=== PATIENT | female | born 1980 | race Caucasian/White ===

== ENCOUNTER 2021-12-21 21:33 | Observation (INO) ==
[2021-12-21] MEDS ORDERED: LORazepam 1 MG TAB SL STA (22:09)
[2021-12-21 23:32] LABS: Alanine Aminotransferase 31 U/L (7-52); Albumin Globulin Ratio 1.9 (0.9-2); Albumin Level 4.3 gm/dl (3.4-5.0); Alkaline Phosphatase 73 U/L (34-104); Anion Gap 8 (3-11); Aspartate Aminotransferase 61 U/L (13-39); BUN Creatinine Ratio 13.1 (10-20); Bilirubin,Total 0.6 mg/dl (0.2-1.0); Blood Urea Nitrogen 11 mg/dl (6-23); Calcium 8.1 mg/dl (8.5-10.1); Carbon Dioxide 26 mmol/L (21-32); Chloride 108 mmol/L (98-107); Est GFR (African American) 100.8 ml/min; Est GFR (Non-African American) 86.9 ml/min; Globulin 2.3 gm/dl (2.5-4.0); Glucose 93 mg/dl (70-99(Fasting)); Potassium 3.7 mmol/L (3.5-5.1); Sodium 142 mmol/L (136-145); Total Protein 6.6 gm/dl (6.0-8.3)
[2021-12-22] MEDS ORDERED: LORazepam 1 MG TAB PO STA (01:31)
[2021-12-22] MEDS ORDERED: ACETAMINOPHEN 500 MG TAB PO STA (01:31)
[2021-12-22] MEDS ORDERED: ONDANSETRON 4 MG OD TAB PO STA (01:58)
[2021-12-22 02:03] LABS: Amphetamines+Metham, Urine Neg (Neg); Barbiturates, Urine Neg (Neg); Benzodiazepine, Urine Neg (Neg); Cocaine, Urine Neg (Neg); MDMA (Ecstacy), Urine Neg (Neg); Methadone, Urine Neg (Neg); Opiate, Urine Neg (Neg); Phencyclidine, Urine Neg (Neg)
--- NOTE | 2021-12-22 03:54 | History & Physical Report ---
Date of Service December 22, 2021 Assessment & Plan (1) Alcohol intoxication: Plan: 41-year-old female with alcohol use disorder who presents with alcohol intoxication and passive situational suicidal ideation. - etoh level 365.4 and clinically intoxicated at arrival - mild AST elevation to 61 - follow clinically - AWSS active withdrawal IV ativan protocol; chosen given ntoxications in past and amount of etoh used - consult behavioral health - 1:1 sitter. suicide precautions. safe tray. see case management note (2) Alcohol use disorder: Plan: - recent relapse x 3 weeks, pint of vodka daily - check cbc, Mg, B12, and folate - replete thiamine and folate - continue counseling on cessation (3) COVID-19: Plan: - asymptomatic from a respiratory standpoint - saturating 97% on room air - covid isolation precautions Plan regular diet, safe tray SCDs med surg full code History of Present Illness Chief Complaint: alcohol intoxication, suicidal ideation Primary Care Provider: Daniel Driscoll MD 41-year-old female with alcohol use disorder who presents with alcohol intoxication and passive situational suicidal ideation. She incidentally tested positive for covid but states that she first tested positive on 12/02/21 She reports some brain fog and diarrhea since then but denies other symptoms. She denies shortness of breath. Patient presented as a 302 petition and warrant per case management note as she was found intoxicated when brought to a crisis center by her . Per case management note, she had been sober for several years, but restarted drinking a pint of vodka daily in the past 3 weeks. She denies current thoughts of harm. ED course: AWSS protocol. Patient has received 3mg total of PO Ativan. Allergies Allergy/AdvReac Type Severity Reaction Status Date / Time avocado Allergy Severe Swelling Verified 12/21/21 21:38 of Lip/Tongue/Throat codeine AdvReac Intermediate Gastrointestinal Verified 12/21/21 21:38 Upset Sulfa (Sulfonamide AdvReac Intermediate Gastrointestinal Verified 12/21/21 21:38 Antibiotics) Upset sulfamethoxazole AdvReac Intermediate Gastrointestinal Verified 12/21/21 21:38 Upset trimethoprim AdvReac Intermediate Gastrointestinal Verified 12/21/21 21:38 Upset kerri Allergy Unknown Uncoded 12/21/21 21:38 Home Medications Medication Instructions Recorded Confirmed Type albuterol sulfate 90 mcg/actuation 2 puff inhalation Q4H PRN 04/13/21 12/21/21 History aerosol inhaler Shortness Of Breath cetirizine 10 mg tablet (Zyrtec) 10 mg PO QAM 04/13/21 12/21/21 History dextroamphetamine-amphetamine 20 20 mg PO QID #120 tabs 12/20/21 12/21/21 Rx mg tablet (Adderall) pantoprazole 40 mg tablet,delayed 40 mg PO DAILY 12/21/21 12/21/21 History release Past Med/Surg History Medical History Alcoholism COVID-19 Family History Other Family hx of alcoholism Social History Smoking Status: Former smoker Tobacco Type: Cigarettes Hx Alcohol Use: Yes Alcohol type: wine and hard liquor Hx Substance Use: Yes Preferred Language: Lao marital status: marital status details: lives with fiance, 50/50 custody of kids with ex- Current Living Situation: Family current occupational status: employed Feels Safe at Home: No Review of Systems Review of Systems: All systems reviewed & are unremarkable except as noted in HPI & below Physical Exam Physical Exam: General: Grossly A&O. NAD. Cooperative. HEENT: Atraumatic, normocephalic. Pulm: CTAB. -wheezes, -rales, -rhonchi. No respiratory distress. Cardiac: RRR, -mrg. Integ: Warm, dry, intact. Msk: Moving all extremities. Results & Data Results & Data ([facility]) Vital Signs (Past 12 Hours) Vital Signs Temp Pulse Pulse Resp BP BP Pulse Ox 12/22/21 01:30 92 H 17 132/87 97 12/21/21 21:45 96 12/21/21 21:45 36.8 C 102 H 26 H 126/97 96 O2 Del Method 12/22/21 01:30 Room Air 12/21/21 21:45 Room Air 12/21/21 21:45 Room Air Laboratory Results Cardiac Enzymes 12/21/21 Range/Units 22:50 AST 61 H (13-39) U/L Comprehensive Metabolic Panel 12/21/21 Range/Units 22:50 Sodium 142 (136-145) mmol/L Potassium 3.7 (3.5-5.1) mmol/L Chloride 108 H (98-107) mmol/L Carbon Dioxide 26 (21-32) mmol/L BUN 11 (6-23) mg/dl Creatinine 0.84 (0.6-1.2) mg/dl Glucose 93 (70-99(Fasting)) mg/dl Calcium 8.1 L (8.5-10.1) mg/dl AST 61 H (13-39) U/L ALT 31 (7-52) U/L Alkaline Phosphatase 73 (34-104) U/L Total Protein 6.6 (6.0-8.3) gm/dl Albumin 4.3 (3.4-5.0) gm/dl Intake and Output 12/21/21 12/21/21 12/22/21 14:59 22:59 06:59 Other: Weight 98 kg Weight Measurement Method Built in [facility] Patient Weight 12/22/21 06:59 Weight 98 kg Code Status & VTE Plan Code Status full VTE Prophylaxis Plan VTE Prophylaxis will be ordered: Yes Supervising Physician Co-Signing Physician Notes Attending addendum: I have physically seen this patient, have supervised the medical residents activities, and agree with the H&P unless as otherwise noted. Assessment and Plan: Suicidal ideation/alcohol intoxication/alcohol use disorder- 302/admit to monitored bed AWSS protocol with IV Ativan One-to-one sitter for suicide precautions Consult psychiatry Alcohol level 365.4, AST 61 Patient reports drinking 1 pint of vodka daily over the past 3 weeks, after relapse occurred 3 weeks ago 500 mg p.o. daily Folic acid 1 mg p.o. daily Multivitamin 1 p.o. daily COVID-19 infection- Primarily as a positive screen, without symptomatology, therefore no active treatment needed Contact precautions Remaining orders and notations as noted Resident Activity Tracking Resident Involvement: Resident Care Provided Care Provided: Adult Hospital Medicine
--- NOTE | 2021-12-22 04:18 | Emergency Department Note ---
Impression & Plan Alcohol dependence, COVID-19, Passive suicidal ideations ED Provider Note CHIEF COMPLAINT: Alcohol intoxication, mental health evaluation HISTORY OF PRESENT ILLNESS: This 41-year-old female patient presents to the emergency department by EMS from the [facility] due to statements made of not wanting to "be alive." Patient has a long history of alcohol dependency and states she has been sober for 4 years up until 3 weeks ago. The patient is currently drinking 1 L of vodka a day. Patient apparently was drinking in the car on the way to the crisis center. She states she blacked out in the middle of praying with a counselor, she believes that is why the ambulance was called. Patient states she becomes very stressed when her children go with their father, she feels like an "empty fran" every week. Patient's fianc states that he and the patient's counselor feel she suffers from some undiagnosed mental health issue such as PTSD and/or bipolar disorder in addition to her alcoholism. They would like the patient to go to a dual treatment facility. REVIEW OF SYSTEMS: A review of systems was performed with positives and pertinent negatives listed in the history of present illness. 10 systems were reviewed and are otherwise negative. Patient is currently answering all questions however is intoxicated, therefore at this review of systems is limited. ALLERGIES: see below MEDICATIONS: see below PMH: see below SOCIAL HISTORY: see below DDx: Mood disorder, infection, hypoglycemia, electrolyte abnormalities, cardiac sources, intracerebral event, toxicologic, trauma, neurologic, as well as other pathologies. PHYSICAL EXAM: Vital signs reviewed. General: Intoxicated but otherwise well-appearing 41-year-old female, in no significant distress. HEENT: No scleral icterus, PERRLA, neck supple. Atraumatic. Cardiovascular: Regular rate and rhythm, no extra sounds. Pulmonary: Clear to auscultation bilaterally, normal work of breathing. Abdomen: Soft, nontender, nondistended, positive bowel sounds. Musculoskeletal: Atraumatic, no peripheral edema. Neurologic: Patient awake alert and oriented x 3, speech is clear Psych: Negative SI, negative HI. Patient reiterates that she sometimes would rather "not be alive" when her children are with her father. Skin: Warm, dry, no rash EMERGENCY DEPARTMENT COURSE/MDM: This patient was evaluated and appeared to be in no significant distress. Patient was clearly intoxicated on physical exam. Blood alcohol content is 365. Patient did request something for anxiety, was given 2 mg of oral Ativan. Patient then complained of pain in the finger and was given 1 g of Tylenol. She did also require 1 more mg of oral Ativan. The patient unfortunately tested COVID positive and is under a 302 warrant for the [facility]. Her fianc reiterates that she did test positive for COVID on December 02. This may be a residual COVID positive test and not an active infection. Patient is aware that this may make placement into a treatment facility very difficult. Patient will be evaluated by the hospitalist service for admission and further management. Patient and fianc are aware of this plan and agreed. DISPOSITION: Admission Past Med/Surg History Medical History (Updated 12/22/21 @ 16:13 by Veronica Vazquez MD) Alcoholism COVID-19 Family History Other Family hx of alcoholism Social History (Updated 12/22/21 @ 16:11 by Veronica Vazquez MD) Smoking Status: Former smoker Tobacco Type: Cigarettes Hx Alcohol Use: Yes Alcohol type: wine and hard liquor Hx Substance Use: Yes Preferred Language: Armenian marital status: marital status details: lives with fiance, 50/50 custody of kids with ex- Current Living Situation: Family current occupational status: employed Feels Safe at Home: No Allergies Allergies Allergy/AdvReac Type Severity Reaction Status Date / Time avocado Allergy Severe Swelling Verified 12/21/21 21:38 of Lip/Tongue/Throat codeine AdvReac Intermediate Gastrointestinal Verified 12/21/21 21:38 Upset Sulfa (Sulfonamide AdvReac Intermediate Gastrointestinal Verified 12/21/21 21:38 Antibiotics) Upset sulfamethoxazole AdvReac Intermediate Gastrointestinal Verified 12/21/21 21:38 Upset trimethoprim AdvReac Intermediate Gastrointestinal Verified 12/21/21 21:38 Upset kerri Allergy Unknown Uncoded 12/21/21 21:38 Home Meds Home Medications Medication Instructions Recorded Confirmed albuterol sulfate 90 mcg/actuation 2 puff inhalation Q4H PRN 04/13/21 12/21/21 aerosol inhaler Shortness Of Breath cetirizine 10 mg tablet (Zyrtec) 10 mg PO QAM 04/13/21 12/21/21 pantoprazole 40 mg tablet,delayed 40 mg PO DAILY 12/21/21 12/21/21 release Previous Rx's Medication Instructions Recorded dextroamphetamine-amphetamine 20 20 mg PO QID #120 tabs 12/20/21 mg tablet (Adderall) Results & Data (ED) Vital Signs Vital Signs - 24 hr 12/21/21 21:45 12/21/21 21:45 12/22/21 01:30 Temperature 36.8 C Temperature Source Oral Pulse Rate 102 H Pulse Rate [Apical] 92 H Pulse Rhythm [Apical] Regular Pulse Strength [Apical] Normal Respiratory Rate 26 H 17 Respiratory Effort / Characteristics Non-Labored Respiratory Depth Normal Respiratory Pattern Regular Blood Pressure 126/97 Blood Pressure [Right Arm] 132/87 Blood Pressure Mean 106 Blood Pressure Mean [Right Arm] 102 Blood Pressure Position [Right Arm] Lying Pulse Oximetry 96 96 97 Oxygen Delivery Method Room Air Room Air Room Air Sepsis Recent Fever Within 48 Hours No Sepsis New/Unexplained Change in Mental Status N/A Sepsis Action Taken by Nursing Physician Notified Home Medications Current Medication List: was personally reviewed by me Laboratory Data Attestation: I reviewed the patient's lab results. Result diagrams: 12/21/21 22:50 Lab Results 12/21/21 12/21/21 12/22/21 Range/Units 22:50 22:50 01:00 Sodium 142 (136-145) mmol/L Potassium 3.7 (3.5-5.1) mmol/L Chloride 108 H (98-107) mmol/L Carbon Dioxide 26 (21-32) mmol/L Anion Gap 8 (3-11) BUN 11 (6-23) mg/dl Creatinine 0.84 (0.6-1.2) mg/dl Est Cr Clr Drug Dosing Not Reportable Est GFR ( Amer) 100.8 ml/min Est GFR (Non-Af Amer) 86.9 ml/min BUN/Creatinine Ratio 13.1 (10-20) Glucose 93 (70-99(Fasting)) mg/dl Calcium 8.1 L (8.5-10.1) mg/dl Total Bilirubin 0.6 (0.2-1.0) mg/dl AST 61 H (13-39) U/L ALT 31 (7-52) U/L Alkaline Phosphatase 73 (34-104) U/L Total Protein 6.6 (6.0-8.3) gm/dl Albumin 4.3 (3.4-5.0) gm/dl Globulin 2.3 L (2.5-4.0) gm/dl Albumin/Globulin Ratio 1.9 (0.9-2) Urine Opiates Screen (Neg) Ur Methadone, Qual (Neg) Urine Barbiturates (Neg) Ur Phencyclidine (PCP) (Neg) U Amphetamin/Meth Scrn (Neg) MDMA (Ecstasy) Screen (Neg) U Benzodiazepines Scrn (Neg) Ur Cocaine Metabolite (Neg) U Marijuana (THC) Screen (Neg) Ethyl Alcohol mg/dL 365.4 H (<10.0) mg/dl SARS-CoV-2, RNA, NAAT POSITIVE A* (NEGATIVE) 12/22/21 Range/Units 01:26 Sodium (136-145) mmol/L Potassium (3.5-5.1) mmol/L Chloride (98-107) mmol/L Carbon Dioxide (21-32) mmol/L Anion Gap (3-11) BUN (6-23) mg/dl Creatinine (0.6-1.2) mg/dl Est Cr Clr Drug Dosing Est GFR ( Amer) ml/min Est GFR (Non-Af Amer) ml/min BUN/Creatinine Ratio (10-20) Glucose (70-99(Fasting)) mg/dl Calcium (8.5-10.1) mg/dl Total Bilirubin (0.2-1.0) mg/dl AST (13-39) U/L ALT (7-52) U/L Alkaline Phosphatase (34-104) U/L Total Protein (6.0-8.3) gm/dl Albumin (3.4-5.0) gm/dl Globulin (2.5-4.0) gm/dl Albumin/Globulin Ratio (0.9-2) Urine Opiates Screen Neg (Neg) Ur Methadone, Qual Neg (Neg) Urine Barbiturates Neg (Neg) Ur Phencyclidine (PCP) Neg (Neg) U Amphetamin/Meth Scrn Neg (Neg) MDMA (Ecstasy) Screen Neg (Neg) U Benzodiazepines Scrn Neg (Neg) Ur Cocaine Metabolite Neg (Neg) U Marijuana (THC) Screen Neg (Neg) Ethyl Alcohol mg/dL (<10.0) mg/dl SARS-CoV-2, RNA, NAAT (NEGATIVE) Administered Medications Folic Acid (Folic Acid 400 Mcg Tab) 400 mcg PO QAM [facility] Stop: 01/21/22 08:59 Last Admin: 12/22/21 08:58 Dose: 400 mcg Documented By: BLUE Thiamine HCl (Thiamine Hcl 100 Mg Tab) 100 mg PO QAM HAVEN Stop: 01/21/22 08:59 Last Admin: 12/22/21 08:58 Dose: 100 mg Documented By: BLUE Discontinued Medications Acetaminophen (Acetaminophen 500 Mg Tab) 1,000 mg PO NOW STA Stop: 12/22/21 01:32 Last Admin: 12/22/21 02:05 Dose: 1,000 mg Documented By: ROSALIA Lorazepam (Lorazepam 1 Mg Tab) 2 mg SL NOW STA Stop: 12/21/21 22:10 Last Admin: 12/21/21 22:26 Dose: 2 mg Documented By: SILVIA Lorazepam (Lorazepam 1 Mg Tab) 1 mg PO NOW STA Stop: 12/22/21 01:32 Last Admin: 12/22/21 02:06 Dose: 1 mg Documented By: ROSALIA Ondansetron HCl (Ondansetron 4 Mg Od Tab) 4 mg PO NOW STA Stop: 12/22/21 01:59 Last Admin: 12/22/21 02:06 Dose: 4 mg Documented By: ROSALIA Blood Pressure Blood Pressure Findings: Elevated blood pressure Blood Pressure Disposition: elevated BP felt to be situational Discharge Plan Visit Data Chief Complaint: Mental Health Evaluation Stated Complaint: ALCOHOL/EMOTIONAL/SCREAMING ED Provider: Veronica Vazquez Discharge Problem: Alcohol dependence, COVID-19, Passive suicidal ideations Patient Disposition: Admitted As Inpatient Discharge Instructions Interventions: ED Discharge Assessment Last Done: 12/22/21 07:59
[2021-12-22] MEDS ORDERED: LORazepam 2 MG in SYRINGE 1 ML IV PRN (07:59)
[2021-12-22] MEDS ORDERED: Ativan IV Alcohol Withdrawal--Active Protocol IV PRN (07:59)
[2021-12-22] MEDS ORDERED: LORazepam 3 MG in SYRINGE 1.5 ML IV PRN (07:59)
[2021-12-22] MEDS ORDERED: LORazepam 1 MG in SYRINGE 0.5 ML IV PRN (07:59)
[2021-12-22] MEDS ORDERED: THIAMINE HCL 100 MG TAB PO SCH (09:00)
[2021-12-22] MEDS ORDERED: FOLIC ACID 400 MCG TAB PO SCH (09:00)
--- NOTE | 2021-12-22 13:27 | Psychiatric Consultation ---
Date of Consultation December 22, 2021 Impression / Recommendations Impression 41 yo woman with recent relapse of alcohol use and increased anxiety, depression and statement of SI in context of her son's medical challenges, alcohol use and conflict with her fiancee. Now that she is sober she is consistently denying SI and desiring discharge to home with follow-up with outpatient dual diagnosis therapy. She feels safe at home and does not desire voluntary inpt psych tx and not felt to meet 302 criteria as no longer experiencing SI, no shmuel, no psychosis and no HI. Acute risk is low given improvement in mood, denial of SI, lack of access to lethal means, plan to avoid substance use, outpatient providers, strong reasons for living and engagement with safety planning. Counseled on ways to reduce acute and chronic risk including engaging with outpatient providers, using safet y plan if needed, and utilizing supports. Most significant modifiable risk factor of intoxication was adressed. (1) Alcohol use disorder: (2) Anxiety: (3) Adjustment disorder with mixed anxiety and depressed mood: Plan -safe for discharge from psychiatric standpoint -302 warrant dispositioned -can discontinue 1-on-1 and suicide precautions -will defer to outpt PCP re: prior to admission Adderall but Adderall dosing of QID is unusual, would consider if higher dose at BID dosing would be more appropriate in the future -option to try naltrexone in future, she will discuss this with her PCP if she finds she is struggling to avoid alcohol use -defer to hospitalist service re: need for any medications for potential alcohol withdrawal if she discharges -she has outpatient therapy -safety plan completed with psych liason and has resource booklet, agrees to return to ED should she feel unsafe/have SI again Risk Factors Assessment Male: No : Yes Do You Have Access To A Gun?: No Health Problems: No Mental Health Diagnoses: Yes Substance Use Disorders: Yes Previous Attempt: No Family History of Suicide: No Previous Psychiatric Hospitalization: No Hopelessness: No Smoker: No Protective Factors Assessment Responsible for Young Children: Yes Employed: Yes Stable Relationships: Yes Supportive Family: Yes Good Rapport with Provider: Yes Telehealth Telehealth Options: Telephone only For the duration of the visit, provider was performing the assessment from: The same facility as the patient After establishing a telemedicine visit, patient was: Patient was verified with two unique identifiers, Patient/authorized rep acknowledged consent and understanding and Gave permission to continue telehealth session Total Time Spent (minutes): 30 Psych History Identifying Data 41 yo woman with history of alcohol use disorder, anxiety admitted medically for alcohol withdrawal on 302 box a warrant for SI. Psychiatry consulted for risk assessment. Chief Complaint "I was drunk and said a bunch of stuff I didn't mean". History of Present Illness Today she is feeling "fine" but notes waking up in the ED has been "uncomfortable and anxious" because she's not home. She recalls everything from yesterday. She denies SI but notes that yesterday she was "angry, frustrated and intoxicated and I could have said a negative mantra about not wanting to be alive" but today notes "I love my life but sometimes I have too much stress I can't handle". She thinks she may have told her fiancee and [facility] "I want to but I really didn't I just wanted things to calm down" she notes "it was a figure of speech but I didn't mean it". She identifies many reasons for living including her "beautiful family", "two children who are amazing and they need their mom, I wouldn't leave them". She recently relapsed after a period of 4 years of sobriety in the context of stressors including son having congenital cataracts/neurology appointments/medical challenges, pending divorce, fiance dealing with tr auma/verbal conflict between them. She's in couples counseling with her fiance to deal with their different communication styles and this contributes to worsening anxiety and she then self-medicates with alcohol. She wants to take a break from alcohol and sees a counselor through [facility] and she knows of residential substance use treatment if she cannot manage it in the outpatient setting or she may try IOP substance use options. She notes "having been intoxicated I said and did a lot of things that I wouldn't normally". She plans to avoid alcohol use moving forward. She notes "if things at home don't go well and I start drinking again then I'll come back to the hospital". She is future- oriented about going home, showering, sending work emails and being with her kids and fiancee. She feels safe returning home. Notes she can argue with her fiancee and he can be verbally mean but wants to return home with him. Was provided with [facility] information. Past Psychiatric History Outpatient Services: counselor Previous Psych Admissions: n/a Do You Have Access To A Gun?: No History of Previous Suicide Attempt: No Past Medication Trials: was on delayed release Adderall XR in the past but had issues with insomnia so she states she previously was on TID Allergies Allergy/AdvReac Type Severity Reaction Status Date / Time avocado Allergy Severe Swelling Verified 12/21/21 21:38 of Lip/Tongue/Throat codeine AdvReac Intermediate Gastrointestinal Verified 12/21/21 21:38 Upset Sulfa (Sulfonamide AdvReac Intermediate Gastrointestinal Verified 12/21/21 21:38 Antibiotics) Upset sulfamethoxazole AdvReac Intermediate Gastrointestinal Verified 12/21/21 21:38 Upset trimethoprim AdvReac Intermediate Gastrointestinal Verified 12/21/21 21:38 Upset kerri Allergy Unknown Uncoded 12/21/21 21:38 Home Medications Medication Instructions Recorded Confirmed Type albuterol sulfate 90 mcg/actuation 2 puff inhalation Q4H PRN 04/13/21 12/21/21 History aerosol inhaler Shortness Of Breath cetirizine 10 mg tablet (Zyrtec) 10 mg PO QAM 04/13/21 12/21/21 History dextroamphetamine-amphetamine 20 20 mg PO QID #120 tabs 12/20/21 12/21/21 Rx mg tablet (Adderall) pantoprazole 40 mg tablet,delayed 40 mg PO DAILY 12/21/21 12/21/21 History release Family History no hx family by suicide Substance Abuse History alcohol use, relapsed after 4 yrs of sobriety prior to a few weeks ago Personal History Living Arrangements: Home Number Of Children: 2 Patient History Medical History Alcoholism COVID-19 Family History Other Family hx of alcoholism Social History Smoking Status: Former smoker Tobacco Type: Cigarettes Hx Alcohol Use: Yes Alcohol type: wine and hard liquor Hx Substance Use: Yes Preferred Language: Sinhala marital status: marital status details: lives with fiance, 50/50 custody of kids with ex- Current Living Situation: Family current occupational status: employed Feels Safe at Home: No Physical Exam Psychiatric: Orientation: alert and oriented x 3 Speech: normal rate/ rhythm/volume of speech Mood: + anxious mood; no depressed mood Thought Process: goal directed thought process and linear/logical thought process Thought Content: reality based without delusions Suicidal Thoughts: denies suicidal thoughts Homicidal Thoughts: denies homicidal thoughts Hallucinations: no auditory hallucinations and no visual hallucinations Cognition: recent memory grossly intact, remote memory grossly intact, attention grossly intact and language grossly intact Insight: + fair insight Judgement: + fair judgement Vital Signs (Past 24 Hours): Last Vital Signs Temp 36.8 C 12/21/21 21:45 Pulse 102 H 12/22/21 07:59 Resp 18 12/22/21 07:59 BP 137/90 12/22/21 07:59 Pulse Ox 98 12/22/21 07:59 O2 Del Method 12/22/21 07:59 Review of Systems All systems reviewed & are unremarkable except as noted in HPI & below Results & Data (PSY) Medications Administered Folic Acid (Folic Acid 400 Mcg Tab) [address] [facility] Stop: 01/21/22 08:59 Last Admin: 12/22/21 08:58 Dose: 400 mcg Documented By: BLUE Thiamine HCl (Thiamine Hcl 100 Mg Tab) 100 mg PO QAM HAVEN Stop: 01/21/22 08:59 Last Admin: 12/22/21 08:58 Dose: 100 mg Documented By: BLUE Coding Level of Care Code 66308 Inpt Consult Level 4 Diagnoses Alcohol use disorder Anxiety F41.9 Adjustment disorder with mixed anxiety and depressed mood F43.23 Time Spent (min) 45
--- NOTE | 2021-12-22 14:36 | Discharge Summary ---
Date of Service December 22, 2021 Admission HPI Per Admitting Provider 41-year-old female with alcohol use disorder who presents with alcohol intoxication and passive situational suicidal ideation. She incidentally tested positive for covid but states that she first tested positive on 12/02/21 She reports some brain fog and diarrhea since then but denies other symptoms. She denies shortness of breath. Patient presented as a 302 petition and warrant per case management note as she was found intoxicated when brought to a crisis center by her . Per case management note, she had been sober for several years, but restarted drinking a pint of vodka daily in the past 3 weeks. She denies current thoughts of harm. ED course: AWSS protocol. Patient has received 3mg total of PO Ativan. Principal Diagnosis 1. Alcohol intoxication-resolved 2. Alcohol abuse 3. COVID-19 + Discharge Exam GENERAL: 41 yo Well-developed, well-nourished WF. NAD. LUNGS: Clear to auscultation bilaterally. No W/R/R. CARDIOVASCULAR: Regular rate and rhythm. ABDOMEN: Soft, non-tender and non-distended. BS normoactive x 4 quad. EXTREMITIES: No edema. Non-tender. Peripheral pulses +2/4. NEUROLOGIC: A&O x3. PSYCHIATRIC: Cooperative. Appropriate mood and affect. SKIN: Warm, dry, intact. No rashes or lesions. Discharge Data Allergies Allergy/AdvReac Type Severity Reaction Status Date / Time avocado Allergy Severe Swelling Verified 12/21/21 21:38 of Lip/Tongue/Throat codeine AdvReac Intermediate Gastrointestinal Verified 12/21/21 21:38 Upset Sulfa (Sulfonamide AdvReac Intermediate Gastrointestinal Verified 12/21/21 21:38 Antibiotics) Upset sulfamethoxazole AdvReac Intermediate Gastrointestinal Verified 12/21/21 21:38 Upset trimethoprim AdvReac Intermediate Gastrointestinal Verified 12/21/21 21:38 Upset kerri Allergy Unknown Uncoded 12/21/21 21:38 Consultations 12/22/21 02:57 ED Decision to Admit Stat 12/22/21 04:41 Consult Psychiatry Routine Hospital Course (1) Alcohol intoxication: - Admitted, 302 hold - etoh level 365.4 and clinically intoxicated at arrival - mild AST elevation to 61 - AWSS active withdrawal IV ativan protocol; chosen given intoxications in past and amount of etoh used - consult behavioral health - 1:1 sitter. suicide precautions. safe tray. - Pt made a 302 d/t concern for suicidal ideations that were never verbalized by the patient but the fiance claimed she made "statements" but did not specify what statements (2) Alcohol use disorder: - Patient has been recovering after inpatient stay in 2018 - She has been participating in outpatient counseling regularly - Admits that she has relapsed over the past month or so when she began drinking vodka on a daily basis - She is engaged and admits that her fiance has also struggled with alcohol abuse and is on probation from domestic abuse against ex- - She admits to having several recent stressors including her 6-yr-old son who has medical problems and struggles with anxiety that appears untreated - She also admits that she has been in verbal altercations with her fiance but not physical which seems to also be a trigger - Ultimately would defer treatment for her anxiety/depressive symptoms to her pcp - Also would consider treatment (such as Vivtrol) to reduce alcohol cravings to her pcp - She verbalizes NO h/o withdrawal seizures (3) COVID-19: - Asymptomatic, tested positive 2 weeks ago - No treatment needed Plan Patient has been seen by liaison and spoke directly with psychiatry, Dr. Hyatt. 302 has been dropped. At this time, she is medically and hemodynamically stable for discharge home. She is not interested in inpatient rehab at this time. She recognizes that she has a problem and wants to get help as an outpatient as she is concerned if she goes inpatient she may lose her job. She is established with a counselor and plans to follow up closely. She also has close family support (sister and mother). Plan has been d/w Dr. Rothman who will also see patient prior to discharge. Total Time Total Time Spent Total Time Spent (In Minutes): >30 minutes Discharge Plan Discharge Items Patient Disposition: Home - Self-Care Reason For Visit: ETOH INTOXICATION,PASSIVE SI Discharge Diagnosis: alcohol intoxication Activity: Resume your previous activity Non-emergency contact: Primary Care Provider Call non-emergency contact if: you have any medication questions and your symptoms worsen Follow-up/Referrals: Daniel Driscoll MD [Primary Care Provider] - Diet: Regular Addtl Attending Provider Instructions: You were hospitalized under a 302 due to being intoxicated and concern for suicidal comments. As we discussed during our visit, it is strongly advised that you remove any and all forms of alcohol from your home. Follow up closely with your counselor. Try to identify all possible triggers for your drinking and discuss them with your counselor on the best coping mechanisms. It is recommended that you follow up wtih your family doctor within 1 week of discharge. You can discuss with him the possibility of being started on medications to help curb your cravings for alcohol. I would also strongly consider starting an anti-anxiety/anti-depression medication. This may help manage your anxiety and prevent you from turning to alcohol to self-medicate. But again, I will leave this to your primary care doctor. If you have any questions/concerns following your discharge that cannot be answered by your primary care provider, please call the nonemergency number listed on your discharge paperwork. In the event of a medical emergency, call 911. Pending Studies at Discharge: No Stand-Alone [facility]: [facility] Medications and DC Order Prescriptions: Continued dextroamphetamine-amphetamine [Adderall] 20 mg tablet 20 mg PO QID Qty: 120 0RF pantoprazole 40 mg tablet,delayed release (DR/EC) 40 mg PO DAILY cetirizine [Zyrtec] 10 mg Tablet 10 mg PO QAM albuterol sulfate 90 mcg/actuation HFA aerosol inhaler 2 puff INHALATION Q4H PRN (Reason: Shortness Of Breath) Discharge Orders: Discharge Order (Routine); Ordered 12/22/21 Ordered By: Patricia Tadeo Admission Data Admit Date/Time: 12/22/21 04:42 Attending Provider: Omid Rothman Admit Provider: Shahid Donnelly Primary Care Provider: Daniel Driscoll Other Providers: Heather Hyatt ; Amber Sylvester ; Didi Duffy ; Derick Cordova Other Interventions: Discharge Summary Assessment (RN) Last Done: 12/22/21 14:48 Supervising Physician Co-Signing Physician Notes I personally saw and examined the patient. I verified all anderson points and agree with Patricia Tadeo PA-C with the following exceptions and/or additions: 41 year old female admission for alcohol intoxication and possible suicidal ideation. Cleared by psychiatry morning of admission. No isolation precautions required for COVID-19 given initial positive result 2 weeks previously. Patient is alert and orientated. Some concern from her fiance about her needing to go to alcohol rehabilitation however patient not consenting for this and did not give consent to discuss further with her fiance. Medically stable for discharge at this time. Coding Level of Care Code D/C DAY MANAGEMENT >30 MINS Diagnoses Alcohol intoxication F10.929 Alcohol use disorder COVID-19 U07.1
--- NOTE | 2021-12-23 00:07 | Billing Data ---
Date of Service December 23, 2021 Coding Level of Care Code 81615 Initial Inpt Care Lvl 3
== END 2021-12-22 14:48 | disposition home or self-care (01) ==
LOC: ED 21:33 → SUATTDRO 12-22 04:42 → INTOOBSV 12-22 04:42 → EDINP 12-22 04:42

== ENCOUNTER 2023-12-05 00:55 | Inpatient (IN) ==
[2023-12-05 01:34] LABS: Basophils # (auto) 0.05 K/uL (0.00-0.20); Basophils % (auto) 0.6 %; Eosinophils # (auto) 0.14 K/uL (0.00-0.50); Eosinophils % (auto) 1.7 %; Hematocrit (blood only) 43.3 % (37.0-47.0); Immature Granulocytes # (auto) 0.02 K/uL (0.01-0.20); Immature Granulocytes % (auto) 0.2 %; Lymphocytes # (auto) 3.02 K/uL (1.20-3.40); Lymphocytes % (auto) 35.7 %; Mean Corpuscular Hemoglobin 32.4 pg (25.0-34.0); Mean Corpuscular Hgb Conc 34.6 g/dL (32.0-36.0); Mean Corpuscular Volume 93.5 fL (80.0-100.0); Mean Platelet Volume 9.9 fL (9.4-12.4); Monocytes # (auto) 0.41 K/uL (0.11-0.59); Monocytes % (auto) 4.8 %; Neutrophils # (auto) 4.82 K/uL (1.40-6.50); Platelet Count 284 K/uL (130-400); RDW Coefficient of Variation 12.5 % (11.5-14.5); RDW Standard Deviation 43.1 fL (36.4-46.3); Red Blood Count 4.63 M/uL (4.20-5.40); White Blood Count 8.46 K/ul (4.8-10.8)
[2023-12-05 01:50] LABS: Alanine Aminotransferase 97 U/L (7-52); Albumin Globulin Ratio 1.5 (0.9-2); Albumin Level 4.6 gm/dl (3.4-5.0); Alkaline Phosphatase 97 U/L (34-104); Anion Gap 13 (3-11); Aspartate Aminotransferase 201 U/L (13-39); BUN Creatinine Ratio 12.2 (10-20); Bilirubin,Total 0.6 mg/dl (0.2-1.0); Blood Urea Nitrogen 9 mg/dl (6-23); Calcium 8.9 mg/dl (8.6-10.3); Carbon Dioxide 22 mmol/L (21-32); Chloride 101 mmol/L (98-107); Est GFR (African American) 115.8 ml/min; Est GFR (Non-African American) 99.9 ml/min; Glucose 104 mg/dl (70-99(Fasting)); Sodium 136 mmol/L (136-145); Total Protein 7.6 gm/dl (6.0-8.3)
[2023-12-05 02:02] LABS: Acetaminophen < 3 ug/ml (10-30); Salicylate < 3.0 mg/dl (3.0-30)
[2023-12-05 02:05] LABS: Thyroid Stimulating Hormone 1.434 uIu/ml (0.300-4.500)
--- NOTE | 2023-12-05 02:18 | Emergency Department Note ---
Impression & Plan Suicidal ideation, Alcohol intoxication the case will be signed out to Dr. Alvarado at change of shift awaiting sobriety ED Provider Note NAME: JACQUELYN AMOS AGE: 43 SEX: Female INFORMANT: Patient ED PROVIDER(S): Sara Rousseau DO CHIEF COMPLAINT: Suicidal ideation and alcohol intoxication PLAN: Disposition: Case was signed out to Dr. Alvarado at change of shift awaiting sobriety MEDICAL DECISION MAKING: this is a 43-year-old female patient with a history of anxiety and alcohol abuse who presents to the emergency department after Having suicidal ideation. Patient describes drinking an excessive amount of alcohol on the nights when she does not have her children( shared custody situation.) Tonight, the patient became quite depressed and began have suicidal thoughts. Patient describes having similar thoughts approximately 1 month ago but did not act upon them. laboratory studies reveal no leukocytosis or anemia. She does have elevated transaminases with AST greater than ALT. Urine drug screen was negative. Urinalysis showed trace ketones. Alcohol level was 297. Patient was given a dose of sublingual Ativan to help with her anxiety. She was able to rest comfortably here in the ER. We are awaiting sobriety so that she can be formally evaluated by the ED psychiatric corrections caseworker. patient complained of nausea and persistent anxiety and was given a second dose of sublingual Ativan and a dose of Zofran. I will sign the case out to Dr. Alvarado change in shift awaiting sobriety. Care/management discussed with: ED psychiatric corrections caseworker Triage Nursing notes: reviewed and agree with them. Vital Signs: reviewed and remarkable for hypertension and tachycardia Additional History obtained from: the patient's ex fianc who is at the bedside Chronic Medical/Social Conditions affecting care: alcohol abuse; depression and anxiety Differential Diagnosis: alcohol intoxication, mood disorder, suicidal ideation HPI: 43 year old Female arrives for evaluation of suicidal ideation. patient is drink excessive alcohol over the past 2 days. she began to feel more depressed tonight and started to have some suicidal thoughts. She asked Gina what would be the best way to end your life and Gina responded by urging her to call the suicide hotline. Patient did reach out to crisis. They were concerned for the patient's safety and directed her here for evaluation with a 302 petition. PAST MEDICAL HISTORY: See Below, PAST SURGICAL HISTORY: See Below, SOCIAL HISTORY: Patient lives with her children, she is unemployed, she denies any drug use, she does describe heavy alcohol use at times HOME MEDICATIONS: see list ALLERGIES: see list VITALS: See Below PHYSICAL EXAMINATION: HEENT: Head - normocephalic and atraumatic. Pupils are equal, round, and reactive to light. Extraocular eye muscles are intact, and sclera are anicteric. Nose - moist nasal mucosa without discharge. Mouth - moist buccal mucosa. Oropharynx is nonerythematous and there is no tonsillar exudate or edema noted. Neck: Supple; no Cervical lymphadenopathy or thyromegaly Heart: tachycardic rate and regular rhythm. There is a normal S1 and S2 with no murmurs, clicks, or gallops appreciated. Lungs: Clear to auscultation bilaterally with no wheezes, rales, or rhonchi. Abdomen: Soft, completely nontender, nondistended, with good bowel sounds. There are no palpable pulsatile masses or hepatosplenomegaly. There is no guarding, rigidity, or rebound noted. Extremities: No evidence of cyanosis, clubbing, or edema. There are easily palpable peripheral pulses. Skin: warm and dry with good turgor and no rashes. Psych: The patient is tearful and anxious and does admit to suicidal thoughts and attempts to come up with different plans. emergency department course: The patient was evaluated in room A-5 with the psychiatric corrections caseworker. Laboratory studies were drawn and the patient was noted to have a significantly elevated alcohol level. She would not be sober until approximately 9 AM. The patient's ex fianc who is at the bedside voices significant concern for the patient's safety and felt that she was acting further on her thoughts regardless of her state of intoxication. Patient complained of significant anxiety and was given a dose of sublingual Ativan which only gave her minimal relief of her symptoms. She rested for some time but then complained of nausea and worsening anxiety. She was given a dose of sublingual Zofran and a second dose of sublingual Ativan. This seemed to help more with her symptoms. Vitals are stable and she is awaiting evaluation by the ED psychiatric corrections caseworker when she is sober. Past Med/Surg History Problem List (Updated 12/05/23 @ 04:35 by Sara Rousseau DO) Alcohol intoxication (Acute) Suicidal ideation (Acute) Sprain of left foot (Acute) Strain of left foot Constipation Dysphagia Anxiety Mood disorder Tachycardia Viral URI Situational stress Depression Right foot injury Head injury due to trauma Palpitation Attention deficit disorder Scoliosis Fatty liver ADHD (attention deficit hyperactivity disorder), inattentive type Hemochromatosis H63D homozygous Asthma GERD (gastroesophageal reflux disease) Adjustment disorder with mixed anxiety and depressed mood Anxiety Passive suicidal ideations (Acute) Alcohol dependence (Chronic) Alcohol use disorder (Acute) Medical History History of COVID-19 2021- no hosp; resolved History of tachycardia related to anxiety Mood disorder Hemochromatosis H63D homozygous Esophagitis Gastritis Fatty liver Dysphagia reason for egd GERD (gastroesophageal reflux disease) Seasonal allergies Asthma (~2019) well controlled; prn inhaler use ADHD Scoliosis Hx of cold sores History of alcoholism on and off since age 19, states no longer drinking daily, has cut back to drinking ~3-4 times per week Depression with anxiety H/O thyroiditis Surgical History S/P wisdom tooth extraction History of removal of cyst left rib cage, local numbing Family History Mother Family history of hemochromatosis Uterus prolapse Arthritis Father Throat cancer Alcohol abuse Myocardial infarction Grandfather (Maternal) Lung cancer Other Family hx of alcoholism Denies family history of Ovarian cancer Prostate cancer Diabetes Breast cancer Colorectal cancer Social History Smoking Status: Never smoker Tobacco Type: Cigarettes Age Started Using Tobacco: 23; Age Quit Using Tobacco: 29; Cigarettes Per Day: 1/2 PPD; Second Hand Exposure: No; Do You Dip or Chew Tobacco: No; Hx Alcohol Use: Yes Alcohol type: wine and hard liquor Hx Substance Use: No Preferred Language: Czech Communication Ability: Effective Visual Impairment: Limited Hearing Ability: Normal Certified Massage Therapist Required: No Beliefs That Will Affect Care: None marital status: marital status details: lives with fiance, 50/50 custody of kids with ex- Current Living Situation: Family current occupational status: employed How many Children do You have: 2 Feels Safe at Home: Yes Childhood Exposure to Second-Hand Smoke: Yes Diet: regular caffeine: Yes Dental Care, Regularly: Yes Physical Activity Frequency: Daily Seatbelt Use: always Sunscreen Use: Yes Do you think of yourself as: straight/heterosexual Assistive Devices: Glasses Allergies Allergies Allergy/AdvReac Type Severity Reaction Status Date / Time avocado Allergy Severe Swelling Verified 10/30/23 13:34 of Lip/Tongue/Throat codeine AdvReac Intermediate Gastrointestinal Verified 10/30/23 13:34 Upset Sulfa (Sulfonamide AdvReac Intermediate Gastrointestinal Verified 10/30/23 13:34 Antibiotics) Upset sulfamethoxazole AdvReac Intermediate Gastrointestinal Verified 10/30/23 13:34 Upset trimethoprim AdvReac Intermediate Gastrointestinal Verified 10/30/23 13:34 Upset kerri Allergy Unknown Uncoded 10/30/23 13:34 Home Meds Home Medications Medication Instructions Recorded Confirmed cetirizine 10 mg tablet (Zyrtec) 10 mg PO QAM 04/13/21 12/05/23 bupropion HCl 100 mg tablet,12 hr 100 mg PO BID 07/30/23 12/05/23 sustained-release folic acid 1 mg tablet 1 mg PO QAM 07/30/23 12/05/23 fexofenadine 60 mg tablet 60 mg PO HS PRN allergies 09/29/23 12/05/23 valacyclovir 1 gram tablet 1,000 mg PO TID Cold Sores 12/05/23 12/05/23 Previous Rx's Medication Instructions Recorded famotidine 40 mg tablet (Pepcid) 40 mg PO BID heartburn #180 tabs 08/18/23 pantoprazole 40 mg tablet,delayed 40 mg PO BID #180 tabs 08/19/23 release dextroamphetamine-amphetamine 20 20 mg PO QID #120 tabs 11/10/23 mg tablet (Adderall) Results & Data (ED) Vital Signs Vital Signs - 24 hr 12/05/23 00:58 12/05/23 05:13 Temperature 36.6 C Temperature Source Temporal Artery Scan Pulse Rate 104 H Pulse Rate [Finger] 92 H Pulse Rhythm [Finger] Regular Pulse Strength [Finger] Normal Respiratory Rate 18 18 Respiratory Effort / Characteristics Non-Labored Spontaneous Non-Labored Spontaneous Respiratory Depth Normal Normal Respiratory Pattern Regular Regular Blood Pressure 143/98 H Blood Pressure [Right Arm] 122/76 Blood Pressure Mean 113 Blood Pressure Mean [Right Arm] 91 Blood Pressure Position Sitting Blood Pressure Position [Right Arm] Lying Pulse Oximetry 96 99 Oxygen Delivery Method Room Air Room Air Sepsis Recent Fever Within 48 Hours No Sepsis New/Unexplained Change in Mental Status N/A Sepsis Action Taken by Nursing No Action Required Laboratory Data 12/05/23 01:10 12/05/23 01:10 Lab Results 12/05/23 12/05/23 Range/Units 01:10 02:26 WBC 8.46 (4.8-10.8) K/ul RBC 4.63 (4.20-5.40) M/uL Hgb 15.0 (12.0-16.0) g/dl Hct 43.3 (37.0-47.0) % MCV 93.5 (80.0-100.0) fL MCH 32.4 (25.0-34.0) pg MCHC 34.6 (32.0-36.0) g/dL RDW Std Deviation 43.1 (36.4-46.3) fL RDW Coeff of Krystina 12.5 (11.5-14.5) % Plt Count 284 (130-400) K/uL MPV 9.9 (9.4-12.4) fL Immature Gran % (Auto) 0.2 % Neut % (Auto) 57.0 % Lymph % (Auto) 35.7 % [place] % (Auto) 4.8 % Eos % (Auto) 1.7 % Baso % (Auto) 0.6 % Neut # (Auto) 4.82 (1.40-6.50) K/uL Lymph # (Auto) 3.02 (1.20-3.40) K/uL [place] # (Auto) 0.41 (0.11-0.59) K/uL Eos # (Auto) 0.14 (0.00-0.50) K/uL Baso # (Auto) 0.05 (0.00-0.20) K/uL Immature Gran # (Auto) 0.02 (0.01-0.20) K/uL Sodium 136 (136-145) mmol/L Potassium 4.0 (3.5-5.1) mmol/L Chloride 101 (98-107) mmol/L Carbon Dioxide 22 (21-32) mmol/L Anion Gap 13 H (3-11) BUN 9 (6-23) mg/dl Creatinine 0.74 (0.6-1.2) mg/dl Est Cr Clr Drug Dosing Not Reportable Est GFR ( Amer) 115.8 ml/min Est GFR (Non-Af Amer) 99.9 ml/min BUN/Creatinine Ratio 12.2 (10-20) Glucose 104 H (70-99(Fasting)) mg/dl Calcium 8.9 (8.6-10.3) mg/dl Total Bilirubin 0.6 (0.2-1.0) mg/dl AST 201 H (13-39) U/L ALT 97 H (7-52) U/L Alkaline Phosphatase 97 (34-104) U/L Total Protein 7.6 (6.0-8.3) gm/dl Albumin 4.6 (3.4-5.0) gm/dl Globulin 3.0 (2.5-4.0) gm/dl Albumin/Globulin Ratio 1.5 (0.9-2) TSH 1.434 (0.300-4.500) uIu/ml Urine Color Yellow Urine Appearance Clear (Clear) Urine pH 5.0 (4.5-7.5) Ur Specific [place] 1.011 (1.000-1.030) Urine Protein Negative (Negative) Urine Glucose (UA) Negative (Negative) Urine Ketones Trace H (Negative) Urine Blood Negative (Negative) Urine Nitrite Negative (Negative) Urine Bilirubin Negative (Negative) Urine Urobilinogen Negative (Negative) Ur Leukocyte Esterase Negative (Negative) Salicylates < 3.0 L (3.0-30) mg/dl Urine Opiates Screen Neg (Neg) Ur Methadone, Qual Neg (Neg) Urine Fentanyl Screen Neg (Neg) Acetaminophen < 3 L (10-30) ug/ml Urine Barbiturates Neg (Neg) Ur Phencyclidine (PCP) Neg (Neg) U Amphetamin/Meth Scrn Neg (Neg) MDMA (Ecstasy) Screen Neg (Neg) U Benzodiazepines Scrn Neg (Neg) Ur Cocaine Metabolite Neg (Neg) U Marijuana (THC) Screen Neg (Neg) Ethyl Alcohol mg/dL 297.4 H (<10.0) mg/dl SARS-CoV-2, RNA, NAAT NEGATIVE (NEGATIVE) Administered Medications Discontinued Medications Lorazepam (Lorazepam 1 Mg Tab) 1 mg SL NOW STA Stop: 12/05/23 02:39 Last Admin: 12/05/23 02:54 Dose: 1 mg Documented By: Lorazepam (Lorazepam 1 Mg Tab) 1 mg SL NOW STA Stop: 12/05/23 04:50 Last Admin: 12/05/23 05:01 Dose: 1 mg Documented By: KVNG Ondansetron HCl (Ondansetron 4 Mg Od Tab) 4 mg PO NOW STA Stop: 12/05/23 04:50 Last Admin: 12/05/23 05:01 Dose: 4 mg Documented By: KVNG Discharge Plan Visit Data Chief Complaint: Mental Health Evaluation Stated Complaint: SUIDICAL THOUGHTS ED Provider: Sara Rousseau Discharge Problem: Suicidal ideation, Alcohol intoxication Forms Stand Alone Forms: [facility], Suicide Prevention Resources Prescriptions Prescriptions: No Action famotidine [Pepcid] 40 mg tablet 40 mg PO BID Qty: 180 3RF pantoprazole 40 mg tablet,delayed release (DR/EC) 40 mg PO BID Qty: 180 3RF dextroamphetamine-amphetamine [Adderall] 20 mg tablet 20 mg PO QID Qty: 120 0RF Rx Instructions: administer doses at least 4-6 hours apart cetirizine [Zyrtec] 10 mg Tablet 10 mg PO QAM fexofenadine 60 mg Tablet 60 mg PO HS PRN (Reason: allergies) valacyclovir 1 gram tablet 1,000 mg PO TID Rx Instructions: 1 tablet 3 times a day until the symptoms are gone bupropion HCl 100 mg tablet sustained-release 12 hr 100 mg PO BID folic acid 1 mg tablet 1 mg PO QAM Referrals Referrals: Daniel Driscoll MD [Primary Care Provider] - Discharge Problem: Alcohol intoxication Qualifiers: Complication of substance-induced condition: with unspecified complication Q ualified Code(s): F10.929 - Alcohol use, unspecified with intoxication, unspecified
[2023-12-05] MEDS: LORazepam 1 MG TAB SL STA ×2 (02:54→05:01)
[2023-12-05 02:55] LABS: Appearance Urine Clear (Clear); Bilirubin Urine Negative (Negative); Blood Urine Negative (Negative); Color Urine Yellow; Glucose Urine UA Negative (Negative); Ketones Urine Trace (Negative); Leukocyte Esterase Urine Negative (Negative); Nitrite Urine Negative (Negative); Protein Urine Negative (Negative); Specific Gravity Urine 1.011 (1.000-1.030); Urobilinogen Urine Negative (Negative)
[2023-12-05 03:08] LABS: Amphetamines+Metham, Urine Neg (Neg); Barbiturates, Urine Neg (Neg); Benzodiazepine, Urine Neg (Neg); Cocaine, Urine Neg (Neg); Fentanyl, Urine Neg (Neg); MDMA (Ecstacy), Urine Neg (Neg); Marijuana, Urine Neg (Neg); Methadone, Urine Neg (Neg); Opiate, Urine Neg (Neg); Phencyclidine, Urine Neg (Neg)
[2023-12-05] MEDS: ONDANSETRON 4 MG OD TAB PO STA (05:01)
--- NOTE | 2023-12-05 08:44 | Emergency Department Note ---
ED Visit Note Received this patient in signout from Dr. Rousseau. See her note for additional details. Patient came in overnight after concerning suicidal statements. Was intoxicated to some degree. Resting here till the morning for more formal evaluation by case management. Collateral history was obtained from other friends or family as well according to records and report. Blood work here without other significant abnormalities. Significant safety concerns exist and a 302 warrant has been issued. Patient seen by 3 S. here. Patient with significant anxiety and was improving with some oral Ativan here. More for anxiety and agitation overnight she had some Ativan. While she is not had severe DT/hallucinations/seizure in the past with withdrawal does relate to us that she drinks a box of wine daily. Given this discussed with the medical team admission for further care and treatment and close monitoring of alcohol withdrawal. Hospitalist team contacted. Can continue work on mental health and anxiety issues as well. .
[2023-12-05] MEDS: LORazepam 1 MG TAB PO STA (10:02)
--- NOTE | 2023-12-05 13:06 | History & Physical Report ---
Date of Service December 05, 2023 Assessment & Plan (1) Alcohol withdrawal: Plan: Patient reports has been drinking 1 box of wine per day (approximately 4 bottles) x 2 weeks Last drink the evening of 12/03 Medical alcohol level 297 on arrival Patient reports she was not drinking for 7-10 days prior to this current binge Secondary to life stressors/ex-/coparenting No history of alcohol withdrawal, DTs, visual/auditory hallucinations, tremors, or alcohol withdrawal seizures However, given tachycardia and elevated transaminases, will place on AWSS protocol Seizure precautions Banana bag x 1 Valium 5 mg IV x 1 AWSS protocol at risk protocol with Ativan as needed Supplemental thiamine and folate daily Continuous telemetry monitoring A.m. CBC, CMP (2) Suicidal ideation: Plan: Patient expressed suicidal ideations to her fianc the evening of 12/03 prior to coming in She denies SI, thoughts of self-harm, or thoughts of harming others at time of admission No prior suicide attempts, but she does endorse passive suicidal ideations One-to-one observation for now Amenable to seeing psych while inpatient Psychiatry consult appreciated (3) ADHD (attention deficit hyperactivity disorder), inattentive type: Plan: Continue Adderall for now Recommend discussion of weaning down, as patient reportedly takes 80-200mg daily, and this could be contributing to her anxiety She reports that she starts binging alcohol whenever she runs out of Adderall (4) Anxiety and depression: Plan: Continue bupropion (5) Alcohol intoxication: (6) Alcohol use disorder: Plan Disposition: Admit to MedSurg telemetry Full code Regular diet, safe tray One-to-one observation until cleared by psychiatry VTE PPx: Low risk, encourage ambulation History of Present Illness Chief Complaint: Mental health evaluation Primary Care Provider: Daniel Driscoll MD Candi is a 43yo female with PMH of alcohol use disorder with dependence, passive suicidal ideations, anxiety, depression, adjustment disorder, GERD, asthma, and ADHD. She presented on 12/04 after calling a crisis number for suicidal ideations. Her fianc (Talat) is at the bedside and provides additional history. Patient reports that she goes through binges of alcohol whenever she runs out of Adderall. She is on a large dose of Adderall (80 mg/day, but sometimes needs to take up to 200 mg/day), and when she runs out, she starts drinking. She reports her current binge has been around 2 weeks. She drinks 1 box of wine per day, but reports she does not always finish the box of wine. No hard alcohol. Prior to this 2-week binge, she reports she was sober for approximately 7 to 10 days. She denies history of alcohol withdrawal, DTs, or seizures related to alcohol withdrawal. She has stopped drinking in the past without withdrawing; reports she sleeps through it, then feels better. Current life stressors include her ex-, who she does not get along with, and who she is currently co-parenting with. She denies suicidal ideations, thoughts of self-harm, or thoughts of harming others at this time. Her last drink was last night on 12/04. No prior hospitalizations for psychiatry, but she has come to the hospital in the past for depression and alcohol use. Patient denies recreational drug use. She reports she has not been eating well since she started her current binge. Patient is amenable to cutting back drinking and seeing psychiatry while inpatient. She characterizes her thought as passive suicidal ideations; for instance, last night while she was drunk she said to her fianc, "say goodbye to my kids for me", and while driving into the hospital's morning she looked at the grace and said "that would be a way to go". While she does not have plans or prior suicide attempts, she does report progression of her depressive symptoms. She denies co-ingestion of other medications or taking pills for the purpose of harming herself. Patient is tachycardic at 110 bpm at time of admission; vitals otherwise stable. ED course: Ativan 1 mg SL x 2 Ativan 1 mg p.o. x 1 Zofran 4 mg p.o. ROS: Patient endorses intermittent headache, intermittent chest palpitations (which patient attributes to anxiety and history of PVCs), diarrhea, and nausea and vomiting yesterday. Patient denies fever, chills, night sweats, visual/auditory hallucinations, tremors, dizziness, lightheadedness, chest pain, SOB, pleuritic CP, cough, abdominal pain, or numbness or tingling in arms or legs. Patient does have some concerns with confidentiality during her hospital stay. She requests a code word for knowledge of her hospital stay, and that her information requires a "break the glass" flag; discussed with registration. Allergies Allergy/AdvReac Type Severity Reaction Status Date / Time avocado Allergy Severe Swelling Verified 10/30/23 13:34 of Lip/Tongue/Throat codeine AdvReac Intermediate Gastrointestinal Verified 10/30/23 13:34 Upset Sulfa (Sulfonamide AdvReac Intermediate Gastrointestinal Verified 10/30/23 13:34 Antibiotics) Upset sulfamethoxazole AdvReac Intermediate Gastrointestinal Verified 10/30/23 13:34 Upset trimethoprim AdvReac Intermediate Gastrointestinal Verified 10/30/23 13:34 Upset kerri Allergy Unknown Uncoded 10/30/23 13:34 Home Medications Medication Instructions Recorded Confirmed Type cetirizine 10 mg tablet (Zyrtec) 10 mg PO QAM 04/13/21 12/05/23 History bupropion HCl 100 mg tablet,12 hr 100 mg PO BID 07/30/23 12/05/23 History sustained-release folic acid 1 mg tablet 1 mg PO QAM 07/30/23 12/05/23 History famotidine 40 mg tablet (Pepcid) 40 mg PO BID heartburn #180 tabs 08/18/23 12/05/23 Rx pantoprazole 40 mg tablet,delayed 40 mg PO BID #180 tabs 08/19/23 12/05/23 Rx release fexofenadine 60 mg tablet 60 mg PO HS PRN allergies 09/29/23 12/05/23 History dextroamphetamine-amphetamine 20 20 mg PO QID #120 tabs 11/10/23 12/05/23 Rx mg tablet (Adderall) valacyclovir 1 gram tablet 1,000 mg PO TID Cold Sores 12/05/23 12/05/23 History Past Med/Surg History Problem List (Updated 12/05/23 @ 13:19 by Isaías Casanova PA-C) Alcohol withdrawal Anxiety and depression Alcohol intoxication (Acute) Suicidal ideation (Acute) Sprain of left foot (Acute) Strain of left foot Constipation Dysphagia Anxiety Mood disorder Tachycardia Viral URI Situational stress Depression Right foot injury Head injury due to trauma Palpitation Attention deficit disorder Scoliosis Fatty liver ADHD (attention deficit hyperactivity disorder), inattentive type Hemochromatosis H63D homozygous Asthma GERD (gastroesophageal reflux disease) Adjustment disorder with mixed anxiety and depressed mood Anxiety Passive suicidal ideations (Acute) Alcohol dependence (Chronic) Alcohol use disorder (Acute) Medical History History of COVID-19 2021- no hosp; resolved History of tachycardia related to anxiety Mood disorder Hemochromatosis H63D homozygous Esophagitis Gastritis Fatty liver Dysphagia reason for egd GERD (gastroesophageal reflux disease) Seasonal allergies Asthma (~2019) well controlled; prn inhaler use ADHD Scoliosis Hx of cold sores History of alcoholism on and off since age 19, states no longer drinking daily, has cut back to drinking ~3-4 times per week Depression with anxiety H/O thyroiditis Surgical History S/P wisdom tooth extraction History of removal of cyst left rib cage, local numbing Family History Mother Family history of hemochromatosis Uterus prolapse Arthritis Father Throat cancer Alcohol abuse Myocardial infarction Grandfather (Maternal) Lung cancer Other Family hx of alcoholism Denies family history of Ovarian cancer Prostate cancer Diabetes Breast cancer Colorectal cancer Social History Smoking Status: Never smoker Tobacco Type: Cigarettes Age Started Using Tobacco: 23; Age Quit Using Tobacco: 29; Cigarettes Per Day: 1/2 PPD; Second Hand Exposure: No; Do You Dip or Chew Tobacco: No; Hx Alcohol Use: Yes Alcohol type: wine and hard liquor Hx Substance Use: No Preferred Language: [place] Communication Ability: Effective Visual Impairment: Limited Hearing Ability: Normal 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 Beliefs That Will Affect Care: None marital status: marital status details: lives with fiance, 50/50 custody of kids with ex- Current Living Situation: Family current occupational status: employed How many Children do You have: 2 Feels Safe at Home: Yes Childhood Exposure to Second-Hand Smoke: Yes Diet: regular caffeine: Yes Dental Care, Regularly: Yes Physical Activity Frequency: Daily Seatbelt Use: always Sunscreen Use: Yes Do you think of yourself as: straight/heterosexual Gender Identity: Female Assistive Devices: Glasses Review of Systems Review of Systems: See HPI above Physical Exam Physical Exam: General: no acute distress; non-toxic appearing; well-nourished; cooperative; SpO2 96% on RA HEENT: normocephalic, atraumatic; no scleral icterus; PERRLA w/ EOMs intact; vision and hearing grossly intact Neck: supple; no lymphadenopathy; trachea midline Skin: Non-diaphoretic; warm, dry without signs of tenting; no cyanosis; no rashes, bruising, lesions, or erythema noted CV: chest wall NTP; RR, tachycardic around 110 bpm; S1/S2 normal; no murmurs/rubs/gallops; pulses intact and symmetric at radial, DP, and PT Lungs: no acute respiratory distress; symmetrical chest wall expansion; clear breath sounds across all lung zaragoza w/o adventitious sounds; no wheezing ABD: Soft, NTP; BS present; no rebound/guarding; no distention MSK: no tics or fasciculations; no tremors; no edema noted in the LEs b/l, nonerythematous Neuro: A&Ox3; normal mood and affect; fluent speech; no focal deficits; sensation grossly intact and symmetric in the LEs b/l Results & Data Results & Data Vital Signs (Past 12 Hours) Vital Signs Temp Pulse Resp BP Pulse Ox O2 Del Method 12/05/23 11:33 110 H 18 132/86 96 Room Air 12/05/23 08:45 36.8 C 114 H 18 122/82 95 Room Air 12/05/23 05:13 92 H 18 122/76 99 Room Air Laboratory Results Abnormal lab results 12/05/23 12/05/23 Range/Units 01:10 02:26 Anion Gap 13 H (3-11) Glucose 104 H (70-99(Fasting)) mg/dl AST 201 H (13-39) U/L ALT 97 H (7-52) U/L Urine Ketones Trace H (Negative) Salicylates < 3.0 L (3.0-30) mg/dl Acetaminophen < 3 L (10-30) ug/ml Ethyl Alcohol mg/dL 297.4 H (<10.0) mg/dl ECG Additional Comments: ECG ordered, pending Code Status & VTE Plan Code Status Full code (discussed with both patient and patient's fianc at bedside) Supervising Physician Co-Signing Physician Notes Patient seen and examined, chart reviewed, case discussed with Isaías Casanova PA-C and I agree with the assessment and plan as above except as otherwise noted Labs and images reviewed 41-year-old female who was reportedly admitted on 302 with expression of suicidal ideation in the setting of alcohol intoxication. Patient reports that she had a difficult therapy session with her ex- which precipitated an acute episode of drinking. She reports she will drink intermittently, generally drinks a black box of wine which is approximately 4 bottles of wine at night. She has been drinking for about the last 2 weeks and had an increased amount of alcohol last night due to the after mentioned argument. She reports prior to 2 weeks ago she had gone for more than a week without any alcohol at all and no withdrawal symptoms. She had self tapered once previously after being seen in the hospital for concerns of alcohol withdrawal risk, but she self tapered her alcohol at that time and did not experience any actual symptoms of withdrawal. Was seen by psych liaison this morning was noted to be tachycardic and diaphoretic. Does have a history of anxiety/depression on bupropion. Takes ADHD for Adderall as noted and notes when she runs out she starts drinking as n oted. Was recommended for medical admission for alcohol withdrawal risk. As she has been drinking up to 4 bottles of wine for 2 weeks, has a transaminitis, and has had concern for alcohol withdrawal in the past and this is reasonable. Suspect that as she went 2 weeks without alcohol recently her overall risk of severe withdrawal is low to moderate. Will trend LFTs for suspected mild alcohol hepatitis and placed on WSS with a frontloaded dose of Valium due to tachycardia and diaphoresis. Urine tox is negative. Patient does express she is concerned about staying in the hospital for a prolonged period of time due to the situation at home involving her kids and "I do anything for my children ", she is future oriented. She endorses passive SI, denies current active SI and notes that her suicidal expressions were impulsive in the setting of the argument with her ex- and with alcohol intake. Agree with above Patient does express that there have been concerns for her ex- obtaining privileged health information in the past. She is clear that she does not want health information shared with him under any circumstances. Did set up a code word, and additional confidentiality/break last added to chart. PG Care Time/CCT Total # of Minutes Spent Total Time Spent with Patient: Total time spent is greater than 50% in coordination of care (as documented) at patient's floor/unit and/or counseling patient: [place] [address] INT INP/OBS CARE MIN Patient Type Established History Comprehensive Exam Comprehensive Medical Decision Making High Complexity Diagnoses Alcohol withdrawal F10.939 Suicidal ideation R45.851 ADHD (attention deficit hyperactivity disorder), inattentive type F90.0 Anxiety and depression F41.9; F32.A Alcohol intoxication F10.929 Complication of substance-induced condition: with unspecified complication Alcohol use disorder F10.90 (5) Alcohol intoxication Complication of substance-induced condition: with unspecified complication Qualified Code(s): F10.929 - Alcohol use, unspecified with intoxication, unspecified
[2023-12-05] MEDS: diazePAM 5 MG/ML 10ML VIAL IV STA (14:38)
[2023-12-05] MEDS: MULTI-VITAMIN INFUSION 10 ML, THIAMINE HCL 100 MG, FOLIC ACID 1 MG in SODIUM CHLORIDE 0... IV ONE (14:38)
--- NOTE | 2023-12-05 14:58 | Psychiatric Consultation ---
Date of Consultation December 05, 2023 Impression / Recommendations Impression Patient is a , domiciled with 2 children 43-year-old white female history of alcohol dependence, prescription stimulant abuse, GERD who presents with suicidal ideation in the context of alcohol intoxication. Patient found to have elevated LFTs and admitted to medicine. Was brought in on a 302 petition. Psychiatry consulted for evaluation. Patient presents a history of alcohol dependence, stimulant abuse. Given family history of alcohol dependence and chronic low mood, feelings of worthlessness, self-esteem issues there is concern for underlying depression. Sub threshold symptoms for PTSD and may benefit from outpatient trauma counseling. Unlikely bupropion is effective and will recommend discontinuation. Antidepressants were discussed with the patient including SSRIs; side effects and adverse effects were discussed and she is agreeable. Given questionable adherence and long half-life of fluoxetine it would be a preferable choice in the patient to target symptoms of depression. She would benefit from a referral to an outpatient psychiatrist given stimulant use for ADHD and antidepressant. Does not present acute safety concerns; she denies suicidal ideation, is future oriented, has intact reality testing wanting to live for her children. She appears precontemplative about quitting alcohol; was offerred rehab and declined. Was explained medical risks of continued alcohol intake. She does not meet criteria for inpatient psychiatry admission at this time and can be managed on an outpatient basis. Overall, I spent a total of 60 minutes with this case including review of chart records, nursing report, review of lab work, direct evaluation of the patient at bedside, counseling the patient, discussion of the patient with the hospitalist provider, discussion with the psychiatric liaison during clinical rounds, and documentation in the electronic health record. (1) Alcohol use disorder, moderate, dependence: (2) Stimulant abuse: (3) MDD (major depressive disorder), recurrent episode, moderate: (4) Marital conflict involving divorce: Plan Recommendations: Discontinue bupropion Start fluoxetine 10 mg daily, if tolerated can increase to 20mg daily tomorrow Hold home Adderall (amphetamine salts) Case management to establish psychiatry follow-up Psych History Identifying Data Patient is a , domiciled with 2 children 43-year-old white female history of alcohol dependence, prescription stimulant abuse, GERD who presents with suicidal ideation in the context of alcohol intoxication. Patient found to have elevated LFTs and admitted to medicine. Was brought in on a 302 petition. Psychiatry consulted for evaluation. Chief Complaint "Didn't feel like living" "Now feel better" History of Present Illness Patient complains of difficulty coparenting with her ex-. They share 2 children together and he will not listen. Says that he she had assumed call with him on Friday and then the kids went to be with him. She then drank heavily after that. She sent messages to him asking him to take care of the children and her cat. She said at that time she felt like life was not worth living. Reports her suicidal ideation has resolved and she currently has no active intent or plan. She reports future intentions to not drink and have a more stable situation. She reports drinking for the last 2 weeks and had a few days of sobriety before that. She denies current withdrawal shakes or tremors. Reports drinking from 1 bottle of wine daily to 4 bottles of wine. Started drinking after her son was born to deal with the depression. Reports escalating stressors of divorce have pushed her to drink more. Her main driver license technician for drinking is to escape negative emotions such as anger and resentment and to cope with stress. Reports past rehab at [facility] for 30 days and did not find it helpful. She relapsed soon after and got a DUI. This was October 2022. At that point she was placed on probation and in the month of April she was completely sober and had an ankle monitor that sensed alcohol so she could not drink. During that time she was sleeping well, eating well, keeping her house clean, had fair energy and concentration. Reports still feeling low at that time. Reports past history of sobriety for 2.5 years and at that time still felt a low mood and complained of worthlessness and poor self-esteem. She reports having increased hypervigilance and often looks over her back. And has nightmares related to her ex- and divorce; this wakes her up from sleep. She denies having flashbacks or nightmares related to events from childhood. Father was a [place] and had PTSD. He was a "alcoholic". Mother and maternal grandmother had anxiety and were treated with medication. Reports in childhood was abandoned by her father and raised by stepfather. She denies any physical sexual or emotional abuse. Social history: Patient has a 12-year-old daughter and an 8-year-old son. and feels is manipulating the proceedings. She recently moved to a new home and this has been stressful; during the move she broke her foot and had a boot on. Has not seen a psychiatrist in the past. Is currently on Adderall 80 mg a day prescribed by PCP. Reports at times she overuses this and ends up not having enough few days at the end of the month and this further worsens her mood. He is interested in long-acting formulations. Reports being on bupropion 100 mg sustained release for the past 2 months and is minimally adherent; appears to be ineffective. Past Psychiatric History History of Previous Suicide Attempt: No Allergies Allergy/AdvReac Type Severity Reaction Status Date / Time avocado Allergy Severe Swelling Verified 10/30/23 13:34 of Lip/Tongue/Throat codeine AdvReac Intermediate Gastrointestinal Verified 10/30/23 13:34 Upset Sulfa (Sulfonamide AdvReac Intermediate Gastrointestinal Verified 10/30/23 13:34 Antibiotics) Upset sulfamethoxazole AdvReac Intermediate Gastrointestinal Verified 10/30/23 13:34 Upset trimethoprim AdvReac Intermediate Gastrointestinal Verified 10/30/23 13:34 Upset kerri Allergy Unknown Uncoded 10/30/23 13:34 Home Medications Medication Instructions Recorded Confirmed Type cetirizine 10 mg tablet (Zyrtec) 10 mg PO QAM 04/13/21 12/05/23 History bupropion HCl 100 mg tablet,12 hr 100 mg PO BID 07/30/23 12/05/23 History sustained-release folic acid 1 mg tablet 1 mg PO QAM 07/30/23 12/05/23 History famotidine 40 mg tablet (Pepcid) 40 mg PO BID heartburn #180 tabs 08/18/23 12/05/23 Rx pantoprazole 40 mg tablet,delayed 40 mg PO BID #180 tabs 08/19/23 12/05/23 Rx release fexofenadine 60 mg tablet 60 mg PO HS PRN allergies 09/29/23 12/05/23 History dextroamphetamine-amphetamine 20 20 mg PO QID #120 tabs 11/10/23 12/05/23 Rx mg tablet (Adderall) valacyclovir 1 gram tablet 1,000 mg PO TID Cold Sores 12/05/23 12/05/23 History Patient History Medical History History of COVID-19 2021- no hosp; resolved History of tachycardia related to anxiety Mood disorder Hemochromatosis H63D homozygous Esophagitis Gastritis Fatty liver Dysphagia reason for egd GERD (gastroesophageal reflux disease) Seasonal allergies Asthma (~2019) well controlled; prn inhaler use ADHD Scoliosis Hx of cold sores History of alcoholism on and off since age 19, states no longer drinking daily, has cut back to drinking ~3-4 times per week Depression with anxiety H/O thyroiditis Surgical History S/P wisdom tooth extraction History of removal of cyst left rib cage, local numbing Family History Mother Family history of hemochromatosis Uterus prolapse Arthritis Father Throat cancer Alcohol abuse Myocardial infarction Grandfather (Maternal) Lung cancer Other Family hx of alcoholism Denies family history of Ovarian cancer Prostate cancer Diabetes Breast cancer Colorectal cancer Social History Smoking Status: Never smoker Tobacco Type: Cigarettes Age Started Using Tobacco: 23; Age Quit Using Tobacco: 29; Cigarettes Per Day: 1/2 PPD; Second Hand Exposure: No; Do You Dip or Chew Tobacco: No; Hx Alcohol Use: Yes Alcohol type: wine and hard liquor Hx Substance Use: No Preferred Language: Hebrew Communication Ability: Effective Visual Impairment: Limited Hearing Ability: Normal 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 Feeder Required: No Beliefs That Will Affect Care: None marital status: marital status details: lives with fiance, 50/50 custody of kids with ex- Current Living Situation: Family current occupational status: employed How many Children do You have: 2 Feels Safe at Home: Yes Childhood Exposure to Second-Hand Smoke: Yes Diet: regular caffeine: Yes Dental Care, Regularly: Yes Physical Activity Frequency: Daily Seatbelt Use: always Sunscreen Use: Yes Do you think of yourself as: straight/heterosexual Gender Identity: Female Assistive Devices: Glasses Physical Exam Mental Examination: Appearance: Disheveled Eye Contact: Maintains Eye Contact Motor Behavior: Unremarkable Speech: Normal Mood: Anxious and Irritable Affect: Constricted Thought Process: Intact and Linear Thought Content: Intact Hallucinations: None Insight: Poor (to limited) Judgement: Fair Vital Signs (Past 24 Hours): Last Vital Signs Temp 36.8 C 12/05/23 08:45 Pulse 110 H 12/05/23 11:33 Resp 18 12/05/23 11:33 BP 132/86 12/05/23 11:33 Pulse Ox 96 12/05/23 11:33 O2 Del Method Room Air 12/05/23 11:33 Results & Data (PSY) Medications Administered Multivitamins 10 ml/ Thiamine HCl 100 mg/ Folic Acid 1 mg/Sodium Chloride 1,011.2 mls @ 500 mls/hr IV .Q2H2M ONE Stop: 12/05/23 15:31 Last Admin: 12/05/23 14:38 Dose: 500 mls/hr Documented By: AM Coding [place] [address] IN/OBS CONSULT LVL 4,60M Patient Type Established History Comprehensive Exam Comprehensive Medical Decision Making Moderate Complexity Diagnoses Alcohol use disorder, moderate, dependence F10.20 Stimulant abuse F15.10 MDD (major depressive disorder), recurrent episode, moderate F33.1 Marital conflict involving divorce Z63.5
[2023-12-05] MEDS: DEXTROAMPHETAMINE/AMPHETAMINE IR 20 MG TAB PO SCH (15:41)
[2023-12-05] MEDS: FLUoxetine HCL 10 MG CAP PO STA (16:07)
--- OUTSIDE RECORDS SUMMARY | 2023-12-05 20:04 | External Medical Summary | Summary of Care ---
Author Name Unknown Organization [facility] Address [address] [place] [address] Phone [phone] Care Team Providers Care Filer And Sander Name Role Phone Daniel Driscoll MD Primary Care Provide r Reason for Visit * Reason Onset Date Comments Advice 12/04/2023 Encounter Details Date Type Department Care Team (Late st Contact Info) Description 12/04/2023 Telephone Gynecology/Obstetrics [facility] [address] [place] [address] Services, Scheduling [address] [place] [address] Advice Allergies Active Allergy Reactions Criticality Noted Date Comments Avocado Edema face/lips/tongue High 06/04/2017 Sulfa Antibiotics 03/17/2006 Hives Kiwi Extract Edema face/lips/tongue High 06/04/2017 Morphine And Codeine Nausea/vomiting 07/22/2007 documented as of this encounter (statuses as of 12/04/2023) Medications Medication Sig Dispensed Refills Start Date End Date Status fexofenadine (GABRIEL ALLERGY) 180 MG Tablet Take 180 mg by mouth daily. Active Triamcinolone Acetonide (NASACORT ALLERGY 24HR) 55 MCG/ACT AERO Administer 2 Sprays into each nostril daily. 06/30/2017 Active EPINEPHrine, anaphylaxis, (EPI-PEN) 0.3 MG/0.3ML SOAJ injection For a severe reaction: Place orange end against the outer thigh, press firmly, hold in place for 10 seconds and go to the Emergency room. 2 Device 3 06/30/2017 Active omeprazole (PRILOSEC) 20 MG CPDR Take 20 mg by mouth daily. Active ketotifen fumarate (ZADITOR) 0.025 % ophthalmic solution Instill 1 Drop into both eyes 2 times a day as needed (allergic eye symptoms). 5 mL 5 08/18/2017 Active Albuterol Sulfate (ALBUTEROL HFA) 108 (90 BASE) MCG/ACT inhaler Inhale 2 Puffs by mouth every 6 hours as needed. Active ZyrTEC Allergy 10 MG Oral Capsule (Cetirizine HCl) Take 10 mg by mouth daily. Active documented as of this encounter (statuses as of 12/04/2023) Active Problems Problem Noted Date Diagnosed Date Pollen-food allergy 08/19/2017 Overview: fresh avocado, kiwi/strawberry - mouth and throat itching and swelling GERD (gastroesophageal reflux disease) 8 Allergic conjunctivitis, bilateral 06/30/2017 Presence of intrauterine contraceptive device (I UD) 10/05/2015 Medication exposure during first trimester of pr egnancy 11/29/2014 ADHD (attention deficit hype ractivity disorder), inattentive type 11/29/2014 Mental disorder in 11/29/2014 First trimester screening 11/29/2014 TERMINATED MEDICATION USAGE AGREEMENT 02/11/2012 Overview: NO controlled substances or ADD meds for this patient please. Violated med use agreement w/ UDS + for marijuana. ADVANCE DIRECTIVE INFORMATION 12/17/2010 Overview: No, Advance Directive brochure offered , patient declined. Personal history of non-drug allergy 06/03/2008 Other allergic rhinitis 03/17/2006 Overview: ICD-10 update of inactive term Attention deficit disorder without hyperactivity Overview: Was on adderall - med use agreement violated on 02/11/12 w/ UDS + for marijuana - do not prescribe controlled substances for this patient. documented as of this encounter (statuses as of 12/04/2023) Resolved Problems Problem Noted Date Diagnosed Date Resolved Date Encounter for supervision of other normal 11/04/2014 07/06/2015 Overview: Taking Adderal. Per MFM: She is doing well on her medication and would like to continue this during . We discussed that Adderall is a category C medication and has been associated with growth problems. See genetic counselor's note. We recommend anatomy screening at 18-20 weeks and serial growth ultrasounds every 4-6 weeks after 24 weeks. These can be done at her primary OB per patient preference. MSAFP after 15 weeks-negative 04/19/2015 Tdap Vaccine administered per clinic protocol. Pt given VIS(vaccine information sheet) Eva Barlow RN Patient received flu vaccine. 04/19/2015 Eva Barlow RN ICD-10 update of inactive term Abnormal maternal glucose to lerance, complicating , childbirth, or the puerperium, unspecified as to episode of care 03/29/2011 02/11/2012 Overview: Glucola elevated, 3hr GTT ordered. Supervision of other high-risk 12/19/2010 02/11/2012 Overview: 03/12/2011--Needs urine culture done at next visit. Order futured. Jennifer Dumont LPN ICD-10 update of inactive term ADDERALL AND OCP EXPOSURE 12/19/2010 Attention deficit disorder w ithout hyperactivity 12/17/2010 02/12/2012 Overview: Duplicate entry h/o PYELONEPHRITIS NOS 11/20/201002/11 Overview: Urine cx each trimester 11/20: >100,000 colonies lactobacillus; repeat urine cx at next visit - 12/19 = neg 03/28: UTI. Rx macrobid. Needs LALA. Obtained 04/23/2011 Sara JAUREGUI Normal , first 11/20/201006/06 Overview: Desires FTS NO KNOWN PROBLEMS 03/17/2006 03/17/2006 MEDICATION USE AGREEMENT 10/2011 Overview: Terminated 02/11/12 based on UDS results - see other entry for details Prior history for this entry: For ADD meds Pt taking Adderall 5mg twice daily at NOB visit-pt has been tapering off this medication through her PCP. Desires M consult 12/17: the patient should have an ultrasound every 4-6 weeks to assess growth if medication is continued documented as of this encounter (statuses as of 12/04/2023) Immunizations Name Administration Dates Next Due Seasonal Influenza, PF, 6 M & above, IM , (FluLaval or Fluzone) 02/21/2021,01/06/2020,02/23/2019, 0 17 Seasonal Influenza, Quadriva lent, No Preserve, IM 04/19/2015 TDAP (age 10 and older)(Boostrix) 04/19/2015 TDAP, Age 7 and older, IM (Adacel) 06/19/2011 documented as of this encounter Social History Tobacco Use Types Packs/Day Years Used Date Smoking Tobacco: Never Cigarettes - 02/26/2005 Smokeless Tobacco: Never Alcohol Use Standard Drinks/Week Comments Yes 0 (1 standard drink = 0.6 oz pure alcohol) occasional wine-none since [employer] Answer Date Recorded Do you have trouble paying y our heating, water, or electric bill? (Adult - for ages 18 years and over) Not on file 09/23/2023 Is your family able to pay t he heat, water, or electric bill? (Household - for ages 0-17 years) Not on file 09/23/2023 Does your family have access to good internet? (Household - for ages 0-17 years) Not on file 09/23/2023 Social Connections Answer Date Recorded How often do you feel lonely or isolated from those around you? (Adult - for ages 18 years and over) Not on file 09/23/2023 Sex and Gender Information Value Date Recorded Sex Assigned at Not on file Gender Identity Not on file Sexual Orientation Not on file Job Start Date Occupation Industry Not on file Not on file Not on file documented as of this encounter Miscellaneous Notes * Telephone Encounter - Sana Galindo OSA - 12/04/2023 6:28 PM EDT Pt needing std testing Stated she is having a discharge that is not normal Please assist [phone] Thank you documented in this encounter Plan of Treatment Health Maintenance Due Date Last Done Comments Lipid Panel 1981 HPV/Co-Test 2011 Depression Screening 07/26/2016 07/27/2015 Hepatitis B Vaccine (2 of 3 - 19+ 3-dose series) 02/09/2018 01/12/2018 Mammogram 2021 COVID-19 Vaccine (1 - 2022-24 season) 2022 Influenza Vaccine (FLU shot) (#1) 2023 02/21/2021, 01/06/2020, 02/23/2019, Additional history exists Cervical Cancer Screening 04/25/2024 Pap Smear 04/25/2024 04/25/2021, 04/0 07/2017, 07/22/2014, Additional history exists IUD 7-Year 06/04/2024 06/04/2017 DTap/Tdap Vaccines (3 - Td or Tdap) 04/19/2025 04/19/2015, 06/19/2011 HPV (Gardasil) Vaccine Aged Out No lo nger eligible based on patient's age to complete this topic MENINGOCOCCAL (MENACTRA/MENVEO) Aged Out No longer eligible based on patient's age to complete this topic Pneumococcal Vaccine: Pediatrics (0 to 5 Years) and At-Risk Patients (6 to 64 Years) Aged Out No longer eligible based on patient's age to complete this topic documented as of this encounter Medical Devices Not on filedocumented as of this encounter Care Teams Filer And Sander Relationship Specialty Start Date End Date Daniel Driscoll MD PCP - General Family Medicine 11/02/15 documented as of this encounter
[2023-12-05] MEDS ORDERED: buPROPion SR 100 MG TABCR PO SCH (21:00)
[2023-12-05] MEDS: FAMOTIDINE 40 MG TABLET PO SCH (21:22)
[2023-12-05] MEDS: PANTOprazole 40 MG TAB PO SCH (21:22)
[2023-12-06] MEDS: LORazepam 2 MG/1 ML VIAL IV PRN (00:40)
[2023-12-06 06:26] LABS: Hematocrit (blood only) 38.4 % (37.0-47.0); Hemoglobin 12.9 g/dl (12.0-16.0); Mean Corpuscular Hemoglobin 31.9 pg (25.0-34.0); Mean Corpuscular Hgb Conc 33.6 g/dL (32.0-36.0); Mean Platelet Volume 10.5 fL (9.4-12.4); Platelet Count 202 K/uL (130-400); RDW Coefficient of Variation 11.9 % (11.5-14.5); RDW Standard Deviation 41.8 fL (36.4-46.3); Red Blood Count 4.04 M/uL (4.20-5.40); White Blood Count 5.34 K/ul (4.8-10.8)
[2023-12-06 06:44] LABS: Albumin Globulin Ratio 1.7 (0.9-2); Albumin Level 3.7 gm/dl (3.4-5.0); BUN Creatinine Ratio 12.3 (10-20); Bilirubin,Total 1.3 mg/dl (0.2-1.0); Creatinine Clr Calc Pharmacy 124.2 ml/min; Est GFR (African American) 117.7 ml/min; Est GFR (Non-African American) 101.6 ml/min; Globulin 2.2 gm/dl (2.5-4.0); Magnesium 1.8 mg/dl (1.7-2.4); Potassium 3.8 mmol/L (3.5-5.1); Total Protein 5.9 gm/dl (6.0-8.3)
[2023-12-06] MEDS: CETIRIZINE HCL 10 MG TABLET PO SCH (08:31)
[2023-12-06] MEDS: FLUoxetine HCL 10 MG CAP PO SCH (08:31)
[2023-12-06] MEDS: THIAMINE HCL 100 MG TAB PO SCH ×2 (08:31→20:02)
[2023-12-06] MEDS: FOLIC ACID 1 MG TAB PO SCH (08:31)
[2023-12-06] MEDS ORDERED: FOLIC ACID 1 MG TAB PO SCH (09:00)
[2023-12-06] MEDS: KETOROLAC 30 MG/ML VIAL IV ONE (09:45)
[2023-12-06 09:52] LABS: Pregnancy Test, Urine Negative (Negative)
--- NOTE | 2023-12-06 17:39 | Hospitalist Progress Note ---
Date of Service December 06, 2023 Assessment & Plan (1) Alcohol use disorder: Plan: Etoh use -- 1 box of wine/day (approximately 4 bottles) x 2 weeks Last drink the evening of 12/03 Etoh level 297 on arrival Denies any etoh for 7-10 days prior to this current binge No evidence of acute withdrawal during my visit today and no other symptoms witnessed by staff [facility] prn is available if AWSS scoring calls for such Cont folic acid supplementation Increase thiamine to 200mg BID She is interested in outpatient counseling but not inpatient rehab We did briefly discuss naltrexone (2) Stimulant abuse: Plan: Takes Adderall 20mg QID However, she admits that her monthly supply often runs out after 2-3 weeks Psychiatry here at [facility] is advising cessation of Adderall moving forward Per records was on Adderall XR in the past Was also on wellbutrin recently - I assume this was for depression as well as her ADHD Her ADHD would be best managed by psychiatry as an outpatient in light of her misuse of her current short-acting Adderall, etc I have contacted the [facility] Liaison to help set her up with outpatient psych services (3) Suicidal ideation: Plan: Patient expressed suicidal ideation to her fianc the evening of 12/03 Psychiatry consult completed 12/04 At this time she is denying suicidal or homicidal ideation 1:1 observation has been d/c Safe tray to be d/c Per psychiatry she is not suicidal and does not need inpatient psychiatric treatment (4) ADHD (attention deficit hyperactivity disorder), inattentive type: Plan: as above (5) Anxiety and depression: Plan: Wellbutrin stopped per psychiatry Starting prozac Outpatient counseling & outpatient psych services will be needed (6) Sprain of left foot: Plan: seen by ortho earlier this month walking boot as needed ice as needed (7) Abnormal CT of the abdomen: Plan: 07/2023 CT a/p showed a prominent gastric lymph node 3 month f/u CT was advised by radiology will d/w patient cont PPI twice daily for chronic GERD Plan significant other updated at bedside Admission and Anticipated Discharge Date Admission Date: December 05, 2023 Subjective patient sleeping upon arrival but easily awakens pt's significant other was at bedside patient reports numerous psychosocial stressors over the last few weeks-months including but not limited to a recurrent L ankle injury requiring a walking boot, problems with her ex-, stressors at home with her children (who both have ADHD), troubles with maintaining a normal stimulant schedule (takes adderall QID, but often runs out early in the month), 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 all of these things have been additive for her and it often leads to problem/excessive drinking at this time she is not interested in inpatient rehab for her alcohol abuse or going to a dual diagnosis program she is interested in psychiatric services as an outpatient to manage her anti- depressants, ADHD meds, etc. she has been following with an intensive psychotherapist for counseling she reports significant fatigue and poor sleep at home denies any abd pain, chest pain, dyspnea, headache her significant other is very supportive and lends collateral history during the visit she is hoping to get a shower and have her diet advanced Review of Systems Review of Systems: psych - denies suicidal/homicidal ideation cv - no cp pulm - no MACIAS GI - no N/V Physical Exam Physical Exam: gen - looks tired, but NAD, pleasant mouth - MMM neck - no JVD heart - RRR, s1 s2, no murmur lungs - CTA b/l abd - soft NT ND BS+ ext - no edema, pulses 2+ b/l psych - a/o x 3, restricted affect, normal thought processes, no psychosis neuro - no tremor or signs of etoh withdrawal Results & Data Results & Data Vital Signs (Past 12 Hours) Vital Signs Temp Pulse Pulse Resp BP Pulse Ox O2 Del Method 12/06/23 15:12 36.8 C 77 16 114/74 94 Room Air 12/06/23 13:00 98 H 12/06/23 11:23 36.5 C 61 16 112/69 92 Room Air 12/06/23 08:00 Room Air 12/06/23 07:30 36.4 C L 86 16 126/85 95 Room Air 12/06/23 06:46 77 Laboratory Results Abnormal lab results 12/06/23 Range/Units 05:41 RBC 4.04 L (4.20-5.40) M/uL Calcium 8.0 L (8.6-10.3) mg/dl Total Bilirubin 1.3 H D (0.2-1.0) mg/dl AST 111 H (13-39) U/L ALT 65 H (7-52) U/L Total Protein 5.9 L D (6.0-8.3) gm/dl Globulin 2.2 L (2.5-4.0) gm/dl PG Care Time/CCT Total # of Minutes Spent Total Time Spent with Patient: Total time spent is greater than 50% in coordination of care (as documented) at patient's floor/unit and/or counseling patient: Coding Level of Care Code 77383 SUB INP/OBS CARE 3/50MIN Diagnoses Alcohol use disorder F10.90 Stimulant abuse F15.10 Suicidal ideation R45.851 ADHD (attention deficit hyperactivity disorder), inattentive type F90.0 Anxiety and depression F41.9; F32.A Sprain of left foot S93.602A Encounter type: initial encounter Abnormal CT of the abdomen R93.5 (6) Sprain of left foot Encounter type: initial encounter Qualified Code(s): S93.602A - Unspecified sprain of left foot, initial encounter
[2023-12-07] MEDS: LOPERAMIDE HCL 2 MG CAP PO STA (03:42)
[2023-12-07] MEDS: LORazepam 1 MG TAB PO PRN (03:42)
[2023-12-07 07:22] VITALS: TEMP 98.4
[2023-12-07 07:59] LABS: Albumin Globulin Ratio 1.5 (0.9-2); Albumin Level 3.6 gm/dl (3.4-5.0); BUN Creatinine Ratio 12.2 (10-20); Bilirubin,Total 0.9 mg/dl (0.2-1.0); Calcium 8.2 mg/dl (8.6-10.3); Creatinine Clr Calc Pharmacy 123.5 ml/min; Est GFR (African American) 115.8 ml/min; Est GFR (Non-African American) 99.9 ml/min; Globulin 2.4 gm/dl (2.5-4.0); Potassium 3.6 mmol/L (3.5-5.1)
[2023-12-07] MEDS: FLUoxetine HCL 20 MG CAP PO SCH (08:17)
[2023-12-07 08:18] LABS: Ferritin 448.5 ng/ml (8-388)
[2023-12-07] MEDS: OPTIRAY 320 100ml IV ONE (11:07)
--- NOTE | 2023-12-07 11:26 | CT Scan Report ---
CT OF THE ABDOMEN AND PELVIS WITH CONTRAST CLINICAL HISTORY: enlarged gastric lymph nodes on prior CT COMPARISON STUDY: CT of the abdomen and pelvis July 23, 2023. TECHNIQUE: Following IV administration of 94 mL of Optiray, axial images of the abdomen and pelvis we re obtained from the lung bases to the proximal femurs. Images were reviewed in the axial, sagittal, and coronal planes. IV contrast was administered without complication. Automated exposure control wa s utilized for the study. A dose lowering technique was utilized adhering to the principles of ALARA . CT DOSE: 1485.96 mGy.cm FINDINGS: Visualized portions of the lung bases are unremarkable. There is no pneumatosis, free air o r portal venous gas. Hepatic steatosis. No hepatic lesions are present. There is no biliary or pancre atic ductal dilatation. Spleen, adrenal glands, kidneys and pancreas are normal. There is no hydronep hrosis. Wall thickening the distal esophagus has improved. Previously described perigastric lymph nod e has decreased in size. This is now normal in size. No enlarged abdominal or pelvic lymph nodes are present. The appendix is normal. Caliber and wall thickness of small and large bowel are normal. No e vidence for a bowel obstruction. There are no fluid collections. A rim-enhancing left adnexal lesion measures 2.5 cm and favors a corpus luteal cyst. IUD is in place. Major vasculature is patent. IMPRESSION: 1. No acute process within the abdomen or pelvis. 2. Resolution of distal esophageal wall thickening. 3. The previously described perigastric lymph node is now normal in size and was likely reactive. 4. Hepatic steatosis. ACT 112: Negative or not required by law. Electronically signed by: Luis Antonio Vargas M.D. 12/07/2023 11:24 AM
[2023-12-07 12:30] VITALS: BP 105/71; PULSE 85; RESP 14; O2SAT 96
--- NOTE | 2023-12-07 13:37 | Discharge Summary ---
Discharge Summary Date of Service December 07, 2023 Principal Dx & Hospital Course #1 = Principal Diagnosis (1) Alcohol use disorder: Etoh use -- 1 box of wine/day (approximately 4 bottles) x 2 weeks Last drink the evening of 12/03 Etoh level 297 on arrival Denies any etoh for 7-10 days prior to this current binge No evidence of acute withdrawal during my visit today and no other symptoms witnessed by staff [facility] if AWSS scoring calls for such Cont folic acid supplementation Increase thiamine to 200mg BID She is interested in outpatient counseling but not inpatient rehab We did briefly discuss naltrexone (2) Stimulant abuse: Takes Adderall 20mg QID However, she admits that her monthly supply often runs out after 2-3 weeks Psychiatry here at [facility] is advising cessation of Adderall moving forward Per records was on Adderall XR in the past Was also on wellbutrin recently - I assume this was for depression as well as her ADHD Her ADHD would be best managed by psychiatry as an outpatient in light of her misuse of her current short-acting Adderall, etc I have contacted the [facility] Liaison to help set her up with outpatient psych services (3) Suicidal ideation: Patient expressed suicidal ideation to her fianc the evening of 12/03 Psychiatry consult completed 12/04 At this time she is denying suicidal or homicidal ideation 1:1 observation has been d/c Safe tray to be d/c Per psychiatry she is not suicidal and does not need inpatient psychiatric treatment (4) ADHD (attention deficit hyperactivity disorder), inattentive type: as above (5) Anxiety and depression: Wellbutrin stopped per psychiatry Starting prozac Outpatient counseling & outpatient psych services will be needed (6) Sprain of left foot: seen by ortho earlier this month walking boot as needed ice as needed (7) Abnormal CT of the abdomen: 07/2023 CT a/p showed a prominent gastric lymph node 3 month f/u CT was advised by radiology will d/w patient cont PPI twice daily for chronic GERD Plan significant other updated at bedside Admission HPI Per Admitting Provider Candi is a 43yo female with PMH of alcohol use disorder with dependence, passive suicidal ideations, anxiety, depression, adjustment disorder, GERD, asthma, and ADHD. She presented on 12/04 after calling a crisis number for suicidal ideations. Her fianc (Talat) is at the bedside and provides additional history. Patient reports that she goes through binges of alcohol whenever she runs out of Adderall. She is on a large dose of Adderall (80 mg/day, but sometimes needs to take up to 200 mg/day), and when she runs out, she starts drinking. She reports her current binge has been around 2 weeks. She drinks 1 box of wine per day, but reports she does not always finish the box of wine. No hard alcohol. Prior to this 2-week binge, she reports she was sober for approximately 7 to 10 days. She denies history of alcohol withdrawal, DTs, or seizures related to alcohol withdrawal. She has stopped drinking in the past without withdrawing; reports she sleeps through it, then feels better. Current life stressors include her ex-, who she does not get along with, and who she is currently co-parenting with. She denies suicidal ideations, thoughts of self-harm, or thoughts of harming others at this time. Her last drink was last night on 12/04. No prior hospitalizations for psychiatry, but she has come to the hospital in the past for depression and alcohol use. Patient denies recreational drug use. She reports she has not been eating well since she started her current binge. Patient is amenable to cutting back drinking and seeing psychiatry while inpatient. She characterizes her thought as passive suicidal ideations; for instance, last night while she was drunk she said to her fianc, "say goodbye to my kids for me", and while driving into the hospital's morning she looked at the grace and said "that would be a way to go". While she does not have plans or prior suicide attempts, she does report progression of her depressive symptoms. She denies co-ingestion of other medications or taking pills for the purpose of harming herself. Patient is tachycardic at 110 bpm at time of admission; vitals otherwise stable. ED course: Ativan 1 mg SL x 2 Ativan 1 mg p.o. x 1 Zofran 4 mg p.o. ROS: Patient endorses intermittent headache, intermittent chest palpitations (which patient attributes to anxiety and history of PVCs), diarrhea, and nausea and vomiting yesterday. Patient denies fever, chills, night sweats, visual/auditory hallucinations, tremors, dizziness, lightheadedness, chest pain, SOB, pleuritic CP, cough, abdominal pain, or numbness or tingling in arms or legs. Patient does have some concerns with confidentiality during her hospital stay. She requests a code word for knowledge of her hospital stay, and that her information requires a "break the glass" flag; discussed with registration. Discharge Exam gen - looks tired, but NAD, pleasant mouth - MMM neck - no JVD heart - RRR, s1 s2, no murmur lungs - CTA b/l abd - soft NT ND BS+ ext - no edema, pulses 2+ b/l psych - a/o x 3, restricted affect, normal thought processes, no psychosis neuro - no tremor or signs of etoh withdrawal Discharge Plan Discharge Items Patient Disposition: Home - Self-Care Reason For Visit: Alcohol Abuse Discharge Diagnosis: 1. alcohol abuse 2. depression 3. anxiety 4. insomnia 5. ADHD 6. low-normal vitamin B12 level 7. previously enlarged gastric lymph node - resolved on CT scan of abdomen 8. suicidal ideation/thoughts of dying - resolved Activity: Resume your previous activity Non-emergency contact: Primary Care Provider and Psychiatrist Call non-emergency contact if: you have any medication questions and your symptoms worsen Follow-up/Referrals: Daniel Driscoll MD [Primary Care Provider] - Diet: Regular Addtl Attending Provider Instructions: Mrs Longoria, Alvaro were hospitalized due to recent alcohol binging as well as having suicidal thoughts. This was all in the setting of multiple life stressors and depressio n/anxiety/insomnia. During the stay you did not have any obvious signs of alcohol withdrawal (except for mild tachycardia on occasion). Your liver function tests were mildly elevated due to recent alcohol use but the tests remained stable. You were seen by psychiatry and they recommended the following - * stopping your Wellbutrin * stopping/holding your Adderall * STARTING fluoxetine 20mg daily for depression/anxiety * outpatient counseling * outpatient psychiatric follow-up for medication management Psychiatry did not recommend inpatient psychiatric treatment. In addition to the above we performed CT scan of your abdomen and this showed that the previously enlarged lymph node near your stomach had normalized. This is good news! Final recommendations - 1. take fluoxetine 20mg daily - prescription sent in for you * common side effects - nausea/stomach upset, mild weight gain, etc. 2. take [id number] vitamin B12 1000mcg (1mg) daily x 6 months for low- normal B12 level of ~300 3. take thiamine (vitamin B1) 200mg twice daily x 30 days (I sent in a prescription for this) 4. for sleep - * hydroxyzine 25mg-50mg at bedtime as needed - prescription sent in for you * side effects - dry mouth, dry eyes, constipation, drowsiness 5. for anxiety - * buspirone 5mg every 8 hours as needed for anxiety (or, you can take it scheduled 3x/day) 6. for nausea - * ondansetron 4mg every 6 hours as needed - prescription sent in for you 7. try to go for a walk every day for at least 30 minutes; this will help your anxiety, ADHD, and also your sleep 8. have Dr Driscoll repeat your LFTS (liver function tests) in about 1 week to ensure they are normalizing 9. please abstain from alcohol if at all possible Follow-up - * see Dr Driscoll THIS WEEK * the [facility] Psychiatry team will assist you in getting outpatient psychiatric treatment - appointment details/dates/etc to be determined Return to [facility] if - * you have thoughts of hurting yourself or someone else * you have shortness of breath * you have severe abdominal pains * you have persistent nausea and/or vomiting * you have any concerns about your alcohol abuse * any other concerns It was our pleasure to care for you! -Dr Martin Pending Studies at Discharge: No Stand-Alone Forms: My [facility] [employer], Smoking Cessation Medications and DC Order Prescriptions: New thiamine HCl (vitamin B1) 100 mg Tablet 200 mg PO BID Qty: 120 0RF fluoxetine 20 mg Capsule 20 mg PO QAM Qty: 30 1RF cyanocobalamin (vitamin B-12) 1,000 mcg tablet 1,000 mcg PO DAILY Qty: 90 1RF Rx Instructions: purchase [id number]; take for 6 months then stop. hydroxyzine HCl 25 mg tablet 25 - 50 mg PO HS PRN (Reason: sleep) Qty: 20 0RF buspirone 5 mg tablet 5 mg PO TID Qty: 20 0RF ondansetron 4 mg tablet,disintegrating 4 mg PO Q6H PRN (Reason: nausea and vomiting) Qty: 7 0RF Continued famotidine [Pepcid] 40 mg tablet 40 mg PO BID Qty: 180 3RF pantoprazole 40 mg tablet,delayed release (DR/EC) 40 mg PO BID Qty: 180 3RF cetirizine [Zyrtec] 10 mg Tablet 10 mg PO QAM fexofenadine 60 mg Tablet 60 mg PO HS PRN (Reason: allergies) valacyclovir 1 gram tablet 1,000 mg PO TID Rx Instructions: 1 tablet 3 times a day until the symptoms are gone folic acid 1 mg tablet 1 mg PO QAM Held dextroamphetamine-amphetamine [Adderall] 20 mg tablet 20 mg PO QID Qty: 120 0RF Hold Instructions: please hold until you see Dr Driscoll or your new psychiatrist Rx Instructions: administer doses at least 4-6 hours apart Discontinued bupropion HCl 100 mg tablet sustained-release 12 hr 100 mg PO BID Discharge Orders: Discharge Order (Routine); Ordered 12/07/23 Ordered By: Omid Martin Admission Data Admit Date/Time: 12/05/23 13:00 Attending Provider: Omid Martin Admit Provider: Alex Williamson Primary Care Provider: Daniel Driscoll Other Providers: Alex Williamson; Heather Hyatt; Carlo Markham; Tomas Castro Jr; Kimberly Clemente; Janessa Barnes; Stephan Bob Hospital Stay Data Consultations 12/05/23 11:56 ED Decision to Admit Stat 12/05/23 15:04 Consult Psychiatry Routine Diagnostic Imagining Performed 12/07/23 10:20 CT Abd and Pelvis [CT abd pelvis IV con only] Routine Pending Results Patient Have Any Pending Studies at Discharge: No Discharge Instructions Given to Patient (Per Discharging Provider) Mrs Longoria, Alvaro were hospitalized due to recent alcohol binging as well as having suicidal thoughts. This was all in the setting of multiple life stressors and depression/anxiety/insomnia. During the stay you did not have any obvious signs of alcohol withdrawal (except for mild tachycardia on occasion). Your liver function tests were mildly elevated due to recent alcohol use but the tests remained stable. You were seen by psychiatry and they recommended the following - * stopping your Wellbutrin * stopping/holding your Adderall * STARTING fluoxetine 20mg daily for depression/anxiety * outpatient counseling * outpatient psychiatric follow-up for medication management Psychiatry did not recommend inpatient psychiatric treatment. In addition to the above we performed CT scan of your abdomen and this showed that the previously enlarged lymph node near your stomach had normalized. This is good news! Final recommendations - 1. take fluoxetine 20mg daily - prescription sent in for you * common side effects - nausea/stomach upset, mild weight gain, etc. 2. take [id number] vitamin B12 1000mcg (1mg) daily x 6 months for low- normal B12 level of ~300 3. take thiamine (vitamin B1) 200mg twice daily x 30 days (I sent in a pr escription for this) 4. for sleep - * hydroxyzine 25mg-50mg at bedtime as needed - prescription sent in for you * side effects - dry mouth, dry eyes, constipation, drowsiness 5. for anxiety - * buspirone 5mg every 8 hours as needed for anxiety (or, you can take it scheduled 3x/day) 6. for nausea - * ondansetron 4mg every 6 hours as needed - prescription sent in for you 7. try to go for a walk every day for at least 30 minutes; this will help your anxiety, ADHD, and also your sleep 8. have Dr Driscoll repeat your LFTS (liver function tests) in about 1 week to ensure they are normalizing 9. please abstain from alcohol if at all possible Follow-up - * see Dr Driscoll THIS WEEK * the [facility] Psychiatry team will assist you in getting outpatient psychiatric treatment - appointment details/dates/etc to be determined Return to [facility] if - * you have thoughts of hurting yourself or someone else * you have shortness of breath * you have severe abdominal pains * you have persistent nausea and/or vomiting * you have any concerns about your alcohol abuse * any other concerns It was our pleasure to care for you! -Dr Martin Coding Diagnoses Alcohol use disorder F10.90 Stimulant abuse F15.10 Suicidal ideation R45.851 ADHD (attention deficit hyperactivity disorder), inattentive type F90.0 Anxiety and depression F41.9; F32.A Sprain of left foot S93.602A Encounter type: initial encounter Abnormal CT of the abdomen R93.5
--- NOTE | 2023-12-07 14:32 | Electrocardiogram Report ---
Test Reason : Blood Pressure : */* mmHG Vent. Rate : 81 BPM Atrial Rate : 81 BPM P-R Int : 130 ms QRS Dur : 82 ms QT Int : 392 ms P-R-T Axes : 38 16 23 degrees QTcB Int : 455 ms Normal sinus rhythm Normal ECG When compared with ECG of 23-Jul-2023 15:58, No significant change was found Confirmed by Kwesi Mendoza ([id number]) on 12/07/2023 2:31:48 PM Referred By: REFERRED SELF Confirmed By: Kwesi Mendoza
== END 2023-12-07 14:39 | disposition home or self-care (01) | DRG 897 ==
LOC: ED 00:55 → EDINP 13:00 → SUATTDRO 13:00 → 2W 21:25